=== PATIENT | male | born 1940 | race Caucasian/White ===

== ENCOUNTER 2018-12-05 09:38 | Inpatient (IN) ==
[~2018-12-05 09:38] MED LIST: PHYTONADIONE 10 MG/1 ML AMP ONE
[2018-12-05] MEDS ORDERED: PHYTONADIONE 10 MG/1 ML AMP ONE (09:53)
[2018-12-05] MEDS ORDERED: ONDANSETRON 4 MG/2 ML VIAL IV STA (09:54)
[2018-12-05] MEDS ORDERED: PHYTONADIONE 10 MG/1 ML AMP SUBCUT STA (09:54)
[2018-12-05] MEDS ORDERED: hydrALAZINE 20 MG/1 ML VIAL IV STA (09:54)
[2018-12-05] MEDS ORDERED: SODIUM CHLORIDE 0.9% 500 ML IV STA (09:54)
[2018-12-05] MEDS ORDERED: PHYTONADIONE INJ 5 MG in SODIUM CHLORIDE 0.9% 50 ML IV STA (09:54)
[2018-12-05 10:30] LABS: Basophils # 0.1 10*3/uL (0.0-0.2); Basophils % 0.7 % (0.0-0.8); Eosinophils # 0.3 10*3/uL (0.0-0.87); Eosinophils % 2.8 % (0.00-10.9); Hematocrit 43.2 VOL% (42.0-52.0); Hemoglobin 13.8 GM/DL (14.0-18.0); Immature Granulocytes % 1.2 %; Immature Granulocytes Absolute 0.14 #; Lymphocytes # 1.8 10*3/uL (1.4-4.0); Lymphocytes % 14.9 % (21.2-54.2); Mean Corpuscular HGB Conc 31.9 GM/DL (32-36); Mean Corpuscular Hemoglobin 32 PG (27-34); Mean Corpuscular Volume 98.6 FL (87-102); Mean Platelet Volume 9.4 FL (9.6-12.0); Monocytes # 0.9 10*3/uL (0.11-0.8); Monocytes % 7.6 % (1.7-12.7); Neutrophils # 8.6 10*3/uL (1.4-7.4); Neutrophils % 72.8 % (38.7-73.9); Platelet Count 233 T/CUMM (130-400); Red Blood Count 4.38 MC/CUMM (3.8-5.5); Red Cell Distribution Width 13.5 % (9.3-17.3); White Blood Count 11.8 T/CUMM (4-12)
[2018-12-05 10:42] LABS: INR 1.8; Partial Thromboplastin Time 29.9 SECS (0-40)
[2018-12-05] MEDS ORDERED: NITROGLYCERIN 2% OINT 1 INCH/GM PACK TOP STA (10:44)
[2018-12-05] MEDS ORDERED: NITROGLYCERIN 2% OINT 1 INCH/GM PACK TOP ONE (10:45)
[2018-12-05 10:46] LABS: Troponin I 0.018 NG/ML (0.00-0.045)
[2018-12-05 10:53] LABS: Bilirubin,Total 0.4 MG/DL (0.2-1.0); Calcium 8.8 MG/DL (8.5-10.1); Osmolality,Calculated 286.7 MOS/KG (273-304); Potassium 4.2 MMOL/L (3.5-5.1); Total Protein 7.7 G/DL (6.4-8.3)
[2018-12-05] MEDS ORDERED: ACETAMINOPHEN 325 MG TABLET PO PRN (11:20)
[2018-12-05] MEDS ORDERED: GLUCAGON 1 MG VIAL IM PRN (11:20)
[2018-12-05] MEDS ORDERED: ONDANSETRON 4 MG/2 ML VIAL IV PRN (11:20)
[2018-12-05] MEDS ORDERED: PROMETHAZINE 25 MG/1 ML VIAL IM PRN (11:20)
[2018-12-05] MEDS ORDERED: DEXTROSE 50% 25 GM/50 ML VIAL IV PRN (11:20)
[2018-12-05] MEDS: INSULIN LISPRO 100 UNIT/ML SUBCUT SCH ×3 (13:51→22:14)
[2018-12-05] MEDS: SODIUM CHLORIDE 0.9% 1,000 ML IV SCH (13:52)
[2018-12-05] MEDS ORDERED: NITROGLYCERIN SL 0.4 MG TABLET SL PRN (14:16)
[2018-12-05] MEDS ORDERED: hydrALAZINE 20 MG/1 ML VIAL IV PRN (14:19)
[2018-12-05] MEDS ORDERED: SODIUM CHLORIDE 0.9% 1,000 ML IV PRN (14:30)
[2018-12-05] MEDS: amLODIPine 10 MG TABLET PO SCH (15:26)
[2018-12-05] MEDS: AMITRIPTYLINE 25 MG TABLET PO SCH (15:26)
[2018-12-05] MEDS: ISOSORBIDE MONONITRATE 30 MG TABLET PO SCH (15:26)
[2018-12-05] MEDS: ATENOLOL 50 MG TABLET PO SCH ×2 (15:27→22:14)
[2018-12-05 18:18] LABS: Hematocrit 37.5 VOL% (42.0-52.0); Hemoglobin 12.1 GM/DL (14.0-18.0)
[2018-12-05] MEDS: MAGNESIUM CHLORIDE 64 MG TABLET PO SCH (19:14)
[2018-12-05] MEDS ORDERED: IRON 18 MG PO SCH (21:00)
[2018-12-05] MEDS: MULTIVITAMIN (OCUVITE) TABLET PO SCH (22:13)
[2018-12-05] MEDS: glipiZIDE 5 MG TABLET PO SCH (22:13)
[2018-12-05] MEDS: OMEGA 3 ACID ETHYL ESTERS 1 GM CAPSULE PO SCH (22:13)
[2018-12-06 00:48] LABS: Basophils # 0.1 10*3/uL (0.0-0.2); Basophils % 0.6 % (0.0-0.8); Eosinophils # 0.2 10*3/uL (0.0-0.87); Eosinophils % 1.8 % (0.00-10.9); Hematocrit 34.5 VOL% (42.0-52.0); Hemoglobin 11.1 GM/DL (14.0-18.0); Immature Granulocytes % 1.1 %; Immature Granulocytes Absolute 0.12 #; Lymphocytes # 1.9 10*3/uL (1.4-4.0); Mean Corpuscular HGB Conc 32.2 GM/DL (32-36); Mean Corpuscular Hemoglobin 32 PG (27-34); Mean Corpuscular Volume 98.6 FL (87-102); Mean Platelet Volume 9.8 FL (9.6-12.0); Monocytes # 1.3 10*3/uL (0.11-0.8); Monocytes % 11.1 % (1.7-12.7); Neutrophils # 7.8 10*3/uL (1.4-7.4); Neutrophils % 68.4 % (38.7-73.9); Platelet Count 224 T/CUMM (130-400); Red Cell Distribution Width 13.7 % (9.3-17.3); White Blood Count 11.3 T/CUMM (4-12)
[2018-12-06 00:49] LABS: Hematocrit 34.7 VOL% (42.0-52.0); Hemoglobin 11.2 GM/DL (14.0-18.0)
[2018-12-06 01:02] LABS: Calcium 8.3 MG/DL (8.5-10.1); Osmolality,Calculated 290.3 MOS/KG (273-304); Potassium 4.2 MMOL/L (3.5-5.1); Risk Ratio 4.6; VLDL CHOLESTEROL 31.6 MG/DL
[2018-12-06 01:05] LABS: Albumin 2.8 G/DL (3.4-5.0); Bilirubin,Total 1.1 MG/DL (0.2-1.0); Calcium 8.6 MG/DL (8.5-10.1); Osmolality,Calculated 287.5 MOS/KG (273-304); Potassium 4.1 MMOL/L (3.5-5.1); Total Protein 6.5 G/DL (6.4-8.3)
[2018-12-06] MEDS: SODIUM CHLORIDE 0.9% 1,000 ML IV SCH ×2 (03:01→18:42)
[2018-12-06 06:55] LABS: Hemoglobin 11.5 GM/DL (14.0-18.0)
[2018-12-06] MEDS ORDERED: NON-FORMULARY MEDICATION (Canagliflozin [Invokana] 100 MG) PO SCH (09:00)
[2018-12-06] MEDS: FUROSEMIDE 20 MG TABLET PO SCH ×2 (09:05→16:27)
[2018-12-06] MEDS: OMEGA 3 ACID ETHYL ESTERS 1 GM CAPSULE PO SCH ×2 (09:06→21:21)
[2018-12-06] MEDS: AMITRIPTYLINE 25 MG TABLET PO SCH (09:06)
[2018-12-06] MEDS: LOSARTAN 50 MG TABLET PO SCH (09:06)
[2018-12-06] MEDS: glipiZIDE 5 MG TABLET PO SCH ×2 (09:07→21:21)
[2018-12-06] MEDS: ATENOLOL 50 MG TABLET PO SCH ×2 (09:08→21:21)
[2018-12-06] MEDS: amLODIPine 10 MG TABLET PO SCH (09:09)
[2018-12-06] MEDS: MULTIVITAMIN (OCUVITE) TABLET PO SCH ×2 (09:09→21:21)
[2018-12-06] MEDS: EZETIMIBE 10 MG TABLET PO SCH (09:09)
[2018-12-06] MEDS: ISOSORBIDE MONONITRATE 30 MG TABLET PO SCH (09:10)
[2018-12-06] MEDS: PANTOPRAZOLE 40 MG TABLET PO SCH (09:10)
[2018-12-06] MEDS: CYANOCOBALAMIN 500 MCG TABLET PO SCH (09:10)
[2018-12-06] MEDS: INSULIN LISPRO 100 UNIT/ML SUBCUT SCH ×4 (09:11→21:22)
[2018-12-06 09:35] LABS: INR 1.3; PT Patient Result 13.9 SECS
[2018-12-06 11:49] LABS: Hematocrit 33.4 VOL% (42.0-52.0); Hemoglobin 10.6 GM/DL (14.0-18.0)
[2018-12-06] MEDS ORDERED: OXYMETAZOLINE 0.05% NASAL SPRAY 15 ML BOTTLE BOTH NARES ONE (12:21)
[2018-12-06] MEDS: DIGOXIN 0.125 MG TABLET PO SCH (12:53)
[2018-12-06] MEDS ORDERED: WARFARIN 2 MG TABLET PO SCH (18:00)
[2018-12-06 18:38] LABS: Hematocrit 34.8 VOL% (42.0-52.0); Hemoglobin 10.8 GM/DL (14.0-18.0)
[2018-12-06] MEDS: ASCORBIC ACID 500 MG TABLET PO SCH (21:21)
[2018-12-06] MEDS ORDERED: FUROSEMIDE 40 MG/4 ML VIAL IV ONE (22:51)
[2018-12-06] MEDS ORDERED: MORPHINE 4 MG/1 ML VIAL IV SCH (23:00)
[2018-12-06] MEDS ORDERED: MORPHINE 4 MG/1 ML VIAL IV PRN (23:02)
[2018-12-07 03:42] LABS: Basophils # 0.1 10*3/uL (0.0-0.2); Basophils % 0.5 % (0.0-0.8); Eosinophils # 0.1 10*3/uL (0.0-0.87); Eosinophils % 1.1 % (0.00-10.9); Hematocrit 31.5 VOL% (42.0-52.0); Hemoglobin 9.9 GM/DL (14.0-18.0); Immature Granulocytes % 0.5 %; Immature Granulocytes Absolute 0.05 #; Lymphocytes # 1.8 10*3/uL (1.4-4.0); Lymphocytes % 16.6 % (21.2-54.2); Mean Corpuscular HGB Conc 31.4 GM/DL (32-36); Mean Corpuscular Hemoglobin 32 PG (27-34); Mean Platelet Volume 9.7 FL (9.6-12.0); Monocytes # 1.1 10*3/uL (0.11-0.8); Monocytes % 10.2 % (1.7-12.7); Neutrophils # 7.9 10*3/uL (1.4-7.4); Neutrophils % 71.1 % (38.7-73.9); Platelet Count 173 T/CUMM (130-400); Red Blood Count 3.12 MC/CUMM (3.8-5.5); Red Cell Distribution Width 14.2 % (9.3-17.3)
[2018-12-07 04:12] LABS: Calcium 8.5 MG/DL (8.5-10.1); Osmolality,Calculated 288.4 MOS/KG (273-304)
[2018-12-07] MEDS: INSULIN LISPRO 100 UNIT/ML SUBCUT SCH ×4 (09:46→21:13)
[2018-12-07] MEDS: FUROSEMIDE 20 MG TABLET PO SCH ×2 (09:51→17:37)
[2018-12-07] MEDS: AMITRIPTYLINE 25 MG TABLET PO SCH (09:51)
[2018-12-07] MEDS: LOSARTAN 50 MG TABLET PO SCH (09:52)
[2018-12-07] MEDS: ATENOLOL 50 MG TABLET PO SCH ×2 (09:52→21:45)
[2018-12-07] MEDS: glipiZIDE 5 MG TABLET PO SCH ×2 (09:52→21:14)
[2018-12-07] MEDS: amLODIPine 10 MG TABLET PO SCH (09:52)
[2018-12-07] MEDS: ISOSORBIDE MONONITRATE 30 MG TABLET PO SCH (09:52)
[2018-12-07] MEDS: EZETIMIBE 10 MG TABLET PO SCH (09:52)
[2018-12-07] MEDS: MAGNESIUM CHLORIDE 64 MG TABLET PO SCH (09:52)
[2018-12-07] MEDS: OMEGA 3 ACID ETHYL ESTERS 1 GM CAPSULE PO SCH ×2 (09:53→21:44)
[2018-12-07] MEDS: PANTOPRAZOLE 40 MG TABLET PO SCH (09:53)
[2018-12-07] MEDS: ASCORBIC ACID 500 MG TABLET PO SCH ×2 (09:54→21:45)
[2018-12-07] MEDS: CYANOCOBALAMIN 500 MCG TABLET PO SCH (09:54)
[2018-12-07] MEDS: MULTIVITAMIN (OCUVITE) TABLET PO SCH ×2 (10:34→21:45)
[2018-12-07] MEDS: DIGOXIN 0.125 MG TABLET PO SCH (13:09)
[2018-12-07] MEDS ORDERED: WARFARIN 3 MG TABLET PO SCH (18:00)
[2018-12-07] MEDS ORDERED: WARFARIN 1 MG TABLET PO SCH (19:00)
[2018-12-08 04:52] LABS: Basophils # 0.1 10*3/uL (0.0-0.2); Basophils % 0.8 % (0.0-0.8); Eosinophils # 0.4 10*3/uL (0.0-0.87); Eosinophils % 4.3 % (0.00-10.9); Hematocrit 31.9 VOL% (42.0-52.0); Hemoglobin 9.9 GM/DL (14.0-18.0); Immature Granulocytes % 0.5 %; Immature Granulocytes Absolute 0.05 #; Lymphocytes # 1.3 10*3/uL (1.4-4.0); Lymphocytes % 13.6 % (21.2-54.2); Mean Corpuscular Hemoglobin 32 PG (27-34); Mean Corpuscular Volume 101.6 FL (87-102); Mean Platelet Volume 9.4 FL (9.6-12.0); Monocytes # 0.8 10*3/uL (0.11-0.8); Monocytes % 8.8 % (1.7-12.7); Neutrophils # 6.7 10*3/uL (1.4-7.4); Platelet Count 170 T/CUMM (130-400); Red Blood Count 3.14 MC/CUMM (3.8-5.5); Red Cell Distribution Width 14.5 % (9.3-17.3); White Blood Count 9.3 T/CUMM (4-12)
[2018-12-08 04:57] LABS: INR 1.2; PT Patient Result 12.8 SECS
[2018-12-08 05:09] LABS: Osmolality,Calculated 288.5 MOS/KG (273-304)
[2018-12-08 08:21] VITALS: BP 163/65
[2018-12-08] MEDS: PANTOPRAZOLE 40 MG TABLET PO SCH (08:34)
[2018-12-08] MEDS: amLODIPine 10 MG TABLET PO SCH (08:34)
[2018-12-08] MEDS: LOSARTAN 50 MG TABLET PO SCH (08:34)
[2018-12-08] MEDS: MULTIVITAMIN (OCUVITE) TABLET PO SCH (08:34)
[2018-12-08] MEDS: FUROSEMIDE 20 MG TABLET PO SCH (08:35)
[2018-12-08] MEDS: EZETIMIBE 10 MG TABLET PO SCH (08:35)
[2018-12-08] MEDS: ASCORBIC ACID 500 MG TABLET PO SCH (08:35)
[2018-12-08] MEDS: ISOSORBIDE MONONITRATE 30 MG TABLET PO SCH (08:35)
[2018-12-08] MEDS: CYANOCOBALAMIN 500 MCG TABLET PO SCH (08:35)
[2018-12-08] MEDS: OMEGA 3 ACID ETHYL ESTERS 1 GM CAPSULE PO SCH (08:35)
[2018-12-08] MEDS: glipiZIDE 5 MG TABLET PO SCH (08:35)
[2018-12-08] MEDS: INSULIN LISPRO 100 UNIT/ML SUBCUT SCH (08:35)
[2018-12-08] MEDS: AMITRIPTYLINE 25 MG TABLET PO SCH (08:35)
[2018-12-08] MEDS: ATENOLOL 50 MG TABLET PO SCH (08:35)
[2018-12-09] MEDS ORDERED: WARFARIN 3 MG TABLET PO SCH (18:00)
== END 2018-12-08 10:55 | disposition home or self-care (01) | DRG 813 ==
LOC: N.ED 09:38 → N.EDINP 09:38 → SUATTDRO 11:20 → N.TELEN 12:43
PROVIDERS: ADMIT Family Medicine; ATTEND Family Medicine

== ENCOUNTER 2018-12-15 08:51 | Inpatient (IN) ==
[2018-12-15] MEDS ORDERED: ONDANSETRON 4 MG/2 ML VIAL IV STA (09:36)
[2018-12-15] MEDS ORDERED: methylPREDNISolone SOD SUC 125 MG/2 ML VIAL IV STA (09:36)
[2018-12-15] MEDS ORDERED: MORPHINE 4 MG/1 ML VIAL IV STA (09:36)
[2018-12-15] MEDS ORDERED: cefTRIAXone 1,000 MG in SODIUM CHLORIDE 0.9% 100 ML IV STA (09:36)
[2018-12-15] MEDS ORDERED: FUROSEMIDE 100 MG/10 ML VIAL IV STA (09:36)
[2018-12-15] MEDS ORDERED: ALBUTEROL 2.5 MG/3 ML NEB RESP TX SCH (10:00)
[2018-12-15 10:02] LABS: Basophils % 0.3 % (0.0-0.8); Eosinophils # 0.1 10*3/uL (0.0-0.87); Eosinophils % 0.5 % (0.00-10.9); Hematocrit 36.7 VOL% (42.0-52.0); Hemoglobin 11.7 GM/DL (14.0-18.0); Immature Granulocytes % 1.1 %; Immature Granulocytes Absolute 0.13 #; Lymphocytes # 1.6 10*3/uL (1.4-4.0); Lymphocytes % 13.8 % (21.2-54.2); Mean Corpuscular HGB Conc 31.9 GM/DL (32-36); Mean Corpuscular Hemoglobin 31 PG (27-34); Mean Corpuscular Volume 97.3 FL (87-102); Monocytes # 0.9 10*3/uL (0.11-0.8); Monocytes % 7.4 % (1.7-12.7); Neutrophils # 8.8 10*3/uL (1.4-7.4); Neutrophils % 76.9 % (38.7-73.9); Platelet Count 346 T/CUMM (130-400); Red Blood Count 3.77 MC/CUMM (3.8-5.5); Red Cell Distribution Width 13.6 % (9.3-17.3); White Blood Count 11.4 T/CUMM (4-12)
[2018-12-15 10:07] LABS: INR 2.7
[2018-12-15 10:11] LABS: PT Patient Result 29.3 SECS
[2018-12-15 10:14] LABS: Alanine Aminotransferase 17 U/L (16-61); Albumin 3.2 G/DL (3.4-5.0); Alkaline Phosphatase 100 U/L (45-117); Aspartate Amino Transferase 17 U/L (0-37); Bilirubin,Total < 0.39 MG/DL (0.2-1.0); Blood Urea Nitrogen 38 MG/DL (7-18); Calcium 8.5 MG/DL (8.5-10.1); Glucose 87 MG/DL (74-106); Osmolality,Calculated 277.1 MOS/KG (273-304); Potassium 3.9 MMOL/L (3.5-5.1); Sodium 135 MMOL/L (136-145); Total Protein 7.6 G/DL (6.4-8.3)
[2018-12-15 10:50] LABS: Apearance,Urine CLEAR (Clear); Bacteria,Urine Occasional /HPF (Few); Bilirubin,Urine Negative (Negative); Blood, Urine Negative (Negative); Glucose,Urine (UA) 50 mg/dL (Negative); Ketones,Urine Negative (Negative); Nitrite,Urine Negative (Negative); Protein,Urine 100 MG/DL; RBC,Urine <1 /HPF (0-4); Urine Color Straw (Yellow); Urine Specific Gravity 1.006 (1.001-1.035); Urine Urobilinogen < 2.0 EU/DL (0.2-1.0); WBC,Urine <1 /HPF (0-6)
[2018-12-15] MEDS ORDERED: DEXTROSE 50% 25 GM/50 ML SYRINGE IV PRN (12:08)
[2018-12-15] MEDS ORDERED: MORPHINE 4 MG/1 ML VIAL IV PRN (12:08)
[2018-12-15] MEDS ORDERED: ONDANSETRON 4 MG/2 ML VIAL IV PRN (12:08)
[2018-12-15] MEDS ORDERED: ACETAMINOPHEN 325 MG TABLET PO PRN (12:08)
[2018-12-15] MEDS ORDERED: GLUCAGON 1 MG VIAL IM PRN (12:08)
[2018-12-15] MEDS: INSULIN REGULAR 100 UNIT/ML SUBCUT SCH ×2 (12:22→18:10)
[2018-12-15] MEDS: SODIUM CHLORIDE 0.9% 1,000 ML IV SCH (12:23)
[2018-12-15] MEDS: methylPREDNISolone SOD SUC 40 MG/1 ML VIAL IV SCH ×2 (12:25→21:15)
[2018-12-15] MEDS ORDERED: NITROGLYCERIN SL 0.4 MG TABLET SL PRN (12:54)
[2018-12-15] MEDS: DIGOXIN 0.125 MG TABLET PO SCH (13:57)
[2018-12-15] MEDS: cefTRIAXone 1,000 MG in SYRINGE 1 EACH IV SCH (13:58)
[2018-12-15] MEDS: amLODIPine 10 MG TABLET PO SCH (13:58)
[2018-12-15] MEDS ORDERED: ALUM/MAG/SIMETH/LIDO VISC 1:1 30 ML BOTTLE PO ONE (15:21)
[2018-12-15] MEDS ORDERED: ALUMINUM/MAGNES/SIMETH MAX STR 30 ML UDCUP PO PRN (15:34)
[2018-12-15] MEDS ORDERED: FUROSEMIDE 40 MG/4 ML VIAL IV SCH (16:00)
[2018-12-15] MEDS: ALBUTEROL/IPRATROPIUM 3 ML NEB RESP TX SCH ×4 (16:07→23:58)
[2018-12-15] MEDS: glipiZIDE 5 MG TABLET PO SCH (16:45)
[2018-12-15] MEDS ORDERED: WARFARIN 2 MG TABLET PO SCH (18:00)
[2018-12-15 18:04] LABS: Troponin I 0.295 NG/ML (0.00-0.045)
[2018-12-15] MEDS: ATENOLOL 50 MG TABLET PO SCH (21:12)
[2018-12-15] MEDS: DOCUSATE SODIUM 100 MG CAPSULE PO SCH (21:12)
[2018-12-15] MEDS: FERROUS SULFATE 325 MG TABLET PO SCH (21:13)
[2018-12-15] MEDS: ISOSORBIDE MONONITRATE 30 MG TABLET PO SCH (21:13)
[2018-12-15] MEDS: INSULIN GLARGINE 100 UNIT/ML SUBCUT SCH (21:13)
[2018-12-16] MEDS: INSULIN REGULAR 100 UNIT/ML SUBCUT SCH ×4 (00:16→19:11)
[2018-12-16] MEDS: ALBUTEROL/IPRATROPIUM 3 ML NEB RESP TX SCH ×6 (03:30→23:28)
[2018-12-16] MEDS: methylPREDNISolone SOD SUC 40 MG/1 ML VIAL IV SCH ×3 (04:00→21:17)
[2018-12-16 04:42] LABS: Basophils % 0.1 % (0.0-0.8); Hematocrit 35.1 VOL% (42.0-52.0); Hemoglobin 10.8 GM/DL (14.0-18.0); Immature Granulocytes % 0.9 %; Immature Granulocytes Absolute 0.08 #; Lymphocytes % 11.8 % (21.2-54.2); Mean Corpuscular HGB Conc 30.8 GM/DL (32-36); Mean Corpuscular Hemoglobin 31 PG (27-34); Mean Corpuscular Volume 99.2 FL (87-102); Mean Platelet Volume 9.9 FL (9.6-12.0); Monocytes # 0.3 10*3/uL (0.11-0.8); Monocytes % 3.9 % (1.7-12.7); Neutrophils # 7.3 10*3/uL (1.4-7.4); Neutrophils % 83.3 % (38.7-73.9); Platelet Count 311 T/CUMM (130-400); Red Blood Count 3.54 MC/CUMM (3.8-5.5); Red Cell Distribution Width 13.9 % (9.3-17.3); White Blood Count 8.8 T/CUMM (4-12)
[2018-12-16 05:14] LABS: Alanine Aminotransferase 15 U/L (16-61); Alkaline Phosphatase 90 U/L (45-117); Aspartate Amino Transferase 11 U/L (0-37); Bilirubin,Total < 0.39 MG/DL (0.2-1.0); Blood Urea Nitrogen 51 MG/DL (7-18); Calcium 8.6 MG/DL (8.5-10.1); Cholesterol 186 MG/DL (50-200); Glucose 193 MG/DL (74-106); HDL Cholesterol 44 MG/DL (40-60); Osmolality,Calculated 278.8 MOS/KG (273-304); Potassium 4.5 MMOL/L (3.5-5.1); Risk Ratio 4.23; Sodium 130 MMOL/L (136-145); Total Protein 7.7 G/DL (6.4-8.3); Triglycerides 89 MG/DL (2-150); VLDL CHOLESTEROL 17.8 MG/DL
[2018-12-16] MEDS: glipiZIDE 5 MG TABLET PO SCH ×2 (08:10→17:14)
[2018-12-16] MEDS: metFORMIN 500 MG TABLET PO SCH (08:10)
[2018-12-16] MEDS ORDERED: LOSARTAN 50 MG TABLET PO SCH (09:00)
[2018-12-16] MEDS: AZITHROMYCIN 250 MG TABLET PO SCH (09:35)
[2018-12-16] MEDS: EZETIMIBE 10 MG TABLET PO SCH (09:35)
[2018-12-16] MEDS: ATENOLOL 50 MG TABLET PO SCH ×2 (09:35→21:17)
[2018-12-16] MEDS: PANTOPRAZOLE 40 MG TABLET PO SCH (09:35)
[2018-12-16] MEDS: NON-FORMULARY MEDICATION (Canagliflozin [Invokana] 100 MG) PO SCH (09:35)
[2018-12-16] MEDS: FUROSEMIDE 40 MG TABLET PO SCH (09:35)
[2018-12-16] MEDS: DOCUSATE SODIUM 100 MG CAPSULE PO SCH ×2 (09:36→21:17)
[2018-12-16] MEDS: AMITRIPTYLINE 25 MG TABLET PO SCH (09:36)
[2018-12-16] MEDS: amLODIPine 10 MG TABLET PO SCH (09:36)
[2018-12-16] MEDS: ASPIRIN CHEW 81 MG TABLET PO SCH (09:36)
[2018-12-16] MEDS: INSULIN GLARGINE 100 UNIT/ML SUBCUT SCH ×2 (09:46→21:18)
[2018-12-16] MEDS: FERROUS SULFATE 325 MG TABLET PO SCH ×2 (09:46→21:17)
[2018-12-16] MEDS: SODIUM CHLORIDE 0.9% 1,000 ML IV SCH ×2 (12:42→14:19)
[2018-12-16] MEDS: MAGNESIUM CHLORIDE 64 MG TABLET PO SCH (12:46)
[2018-12-16] MEDS: DIGOXIN 0.125 MG TABLET PO SCH (13:55)
[2018-12-16] MEDS: cefTRIAXone 1,000 MG in SYRINGE 1 EACH IV SCH (13:56)
[2018-12-16] MEDS: WARFARIN 3 MG TABLET PO SCH (17:15)
[2018-12-16] MEDS: ISOSORBIDE MONONITRATE 30 MG TABLET PO SCH (21:17)
[2018-12-17] MEDS: INSULIN REGULAR 100 UNIT/ML SUBCUT SCH ×5 (00:02→17:23)
[2018-12-17] MEDS: ALBUTEROL/IPRATROPIUM 3 ML NEB RESP TX SCH ×5 (03:01→19:21)
[2018-12-17] MEDS: methylPREDNISolone SOD SUC 40 MG/1 ML VIAL IV SCH ×3 (05:00→20:17)
[2018-12-17] MEDS: INSULIN GLARGINE 100 UNIT/ML SUBCUT SCH ×2 (09:25→20:17)
[2018-12-17] MEDS: NON-FORMULARY MEDICATION (Canagliflozin [Invokana] 100 MG) PO SCH (09:25)
[2018-12-17] MEDS: metFORMIN 500 MG TABLET PO SCH (09:26)
[2018-12-17] MEDS: ASPIRIN CHEW 81 MG TABLET PO SCH (09:26)
[2018-12-17] MEDS: glipiZIDE 5 MG TABLET PO SCH ×2 (09:27→16:52)
[2018-12-17] MEDS: ATENOLOL 50 MG TABLET PO SCH ×2 (09:27→20:17)
[2018-12-17] MEDS: AMITRIPTYLINE 25 MG TABLET PO SCH (09:27)
[2018-12-17] MEDS: AZITHROMYCIN 250 MG TABLET PO SCH (09:27)
[2018-12-17] MEDS: EZETIMIBE 10 MG TABLET PO SCH (09:27)
[2018-12-17] MEDS: amLODIPine 10 MG TABLET PO SCH (09:27)
[2018-12-17] MEDS: FERROUS SULFATE 325 MG TABLET PO SCH ×2 (09:27→20:17)
[2018-12-17] MEDS: DOCUSATE SODIUM 100 MG CAPSULE PO SCH ×2 (09:27→20:17)
[2018-12-17] MEDS: PANTOPRAZOLE 40 MG TABLET PO SCH (09:27)
[2018-12-17] MEDS: FUROSEMIDE 40 MG TABLET PO SCH (09:27)
[2018-12-17] MEDS: MAGNESIUM HYDROXIDE SUSP 30 ML UDCUP PO PRN (10:01)
[2018-12-17] MEDS: SODIUM CHLORIDE 0.9% 1,000 ML IV SCH (13:02)
[2018-12-17] MEDS: DIGOXIN 0.125 MG TABLET PO SCH (13:37)
[2018-12-17] MEDS: cefTRIAXone 1,000 MG in SYRINGE 1 EACH IV SCH (13:38)
[2018-12-17] MEDS: ISOSORBIDE MONONITRATE 30 MG TABLET PO SCH (20:17)
[2018-12-18] MEDS: ALBUTEROL/IPRATROPIUM 3 ML NEB RESP TX SCH ×7 (00:41→22:35)
[2018-12-18] MEDS: INSULIN REGULAR 100 UNIT/ML SUBCUT SCH ×5 (00:47→17:23)
[2018-12-18] MEDS: methylPREDNISolone SOD SUC 40 MG/1 ML VIAL IV SCH ×3 (04:12→22:17)
[2018-12-18 05:08] LABS: INR 1.7; PT Patient Result 18.5 SECS
[2018-12-18 05:23] LABS: Bilirubin,Total 0.6 MG/DL (0.2-1.0); Calcium 8.7 MG/DL (8.5-10.1); Osmolality,Calculated 292.7 MOS/KG (273-304); Potassium 5.1 MMOL/L (3.5-5.1)
[2018-12-18] MEDS: INSULIN GLARGINE 100 UNIT/ML SUBCUT SCH ×2 (09:39→22:17)
[2018-12-18] MEDS: metFORMIN 500 MG TABLET PO SCH (09:39)
[2018-12-18] MEDS: ATENOLOL 50 MG TABLET PO SCH ×2 (09:40→22:17)
[2018-12-18] MEDS: AMITRIPTYLINE 25 MG TABLET PO SCH (09:40)
[2018-12-18] MEDS: ASPIRIN CHEW 81 MG TABLET PO SCH (09:40)
[2018-12-18] MEDS: NON-FORMULARY MEDICATION (Canagliflozin [Invokana] 100 MG) PO SCH (09:40)
[2018-12-18] MEDS: DOCUSATE SODIUM 100 MG CAPSULE PO SCH ×2 (09:40→22:16)
[2018-12-18] MEDS: EZETIMIBE 10 MG TABLET PO SCH (09:40)
[2018-12-18] MEDS: FERROUS SULFATE 325 MG TABLET PO SCH ×2 (09:40→22:16)
[2018-12-18] MEDS: AZITHROMYCIN 250 MG TABLET PO SCH (09:40)
[2018-12-18] MEDS: amLODIPine 10 MG TABLET PO SCH (09:40)
[2018-12-18] MEDS: glipiZIDE 5 MG TABLET PO SCH ×2 (09:40→16:57)
[2018-12-18] MEDS: PANTOPRAZOLE 40 MG TABLET PO SCH (09:41)
[2018-12-18] MEDS: FUROSEMIDE 40 MG TABLET PO SCH (09:41)
[2018-12-18] MEDS: SODIUM CHLORIDE 0.9% 1,000 ML IV SCH (12:04)
[2018-12-18] MEDS: MAGNESIUM CHLORIDE 64 MG TABLET PO SCH (12:28)
[2018-12-18] MEDS: DIGOXIN 0.125 MG TABLET PO SCH (12:28)
[2018-12-18] MEDS: cefTRIAXone 1,000 MG in SYRINGE 1 EACH IV SCH (12:29)
[2018-12-18] MEDS: ISOSORBIDE MONONITRATE 30 MG TABLET PO SCH (22:17)
[2018-12-19] MEDS: INSULIN REGULAR 100 UNIT/ML SUBCUT SCH ×4 (01:03→17:12)
[2018-12-19] MEDS: ALBUTEROL/IPRATROPIUM 3 ML NEB RESP TX SCH ×6 (03:02→23:52)
[2018-12-19 05:06] LABS: INR 1.5
[2018-12-19 05:15] LABS: Calcium 8.8 MG/DL (8.5-10.1); Osmolality,Calculated 295.5 MOS/KG (273-304); Potassium 5.1 MMOL/L (3.5-5.1)
[2018-12-19] MEDS: methylPREDNISolone SOD SUC 40 MG/1 ML VIAL IV SCH ×3 (05:15→22:16)
[2018-12-19] MEDS: INSULIN GLARGINE 100 UNIT/ML SUBCUT SCH ×2 (09:35→22:16)
[2018-12-19] MEDS: EZETIMIBE 10 MG TABLET PO SCH (09:35)
[2018-12-19] MEDS: metFORMIN 500 MG TABLET PO SCH (09:35)
[2018-12-19] MEDS: DOCUSATE SODIUM 100 MG CAPSULE PO SCH ×2 (09:36→22:15)
[2018-12-19] MEDS: amLODIPine 10 MG TABLET PO SCH (09:36)
[2018-12-19] MEDS: FERROUS SULFATE 325 MG TABLET PO SCH ×2 (09:36→22:15)
[2018-12-19] MEDS: AMITRIPTYLINE 25 MG TABLET PO SCH (09:36)
[2018-12-19] MEDS: AZITHROMYCIN 250 MG TABLET PO SCH (09:36)
[2018-12-19] MEDS: ATENOLOL 50 MG TABLET PO SCH ×2 (09:36→22:15)
[2018-12-19] MEDS: PANTOPRAZOLE 40 MG TABLET PO SCH (09:36)
[2018-12-19] MEDS: NON-FORMULARY MEDICATION (Canagliflozin [Invokana] 100 MG) PO SCH (09:36)
[2018-12-19] MEDS: ASPIRIN CHEW 81 MG TABLET PO SCH (09:36)
[2018-12-19] MEDS: glipiZIDE 5 MG TABLET PO SCH ×2 (09:36→16:46)
[2018-12-19] MEDS: FUROSEMIDE 40 MG TABLET PO SCH (09:37)
[2018-12-19] MEDS: MAGNESIUM CHLORIDE 64 MG TABLET PO SCH (13:32)
[2018-12-19] MEDS: DIGOXIN 0.125 MG TABLET PO SCH (13:32)
[2018-12-19] MEDS: SODIUM CHLORIDE 0.9% 1,000 ML IV SCH (13:33)
[2018-12-19] MEDS: cefTRIAXone 1,000 MG in SYRINGE 1 EACH IV SCH (13:33)
[2018-12-19] MEDS: MAGNESIUM HYDROXIDE SUSP 30 ML UDCUP PO PRN (22:16)
[2018-12-19] MEDS: ISOSORBIDE MONONITRATE 30 MG TABLET PO SCH (22:16)
[2018-12-20] MEDS: INSULIN REGULAR 100 UNIT/ML SUBCUT SCH ×4 (02:35→18:46)
[2018-12-20] MEDS: ALBUTEROL/IPRATROPIUM 3 ML NEB RESP TX SCH ×6 (03:49→23:20)
[2018-12-20] MEDS: methylPREDNISolone SOD SUC 40 MG/1 ML VIAL IV SCH ×3 (04:24→22:35)
[2018-12-20 04:46] LABS: Basophils % 0.1 % (0.0-0.8); Hematocrit 34.6 VOL% (42.0-52.0); Hemoglobin 10.7 GM/DL (14.0-18.0); Immature Granulocytes % 1.8 %; Immature Granulocytes Absolute 0.19 #; Lymphocytes # 0.7 10*3/uL (1.4-4.0); Lymphocytes % 6.5 % (21.2-54.2); Mean Corpuscular HGB Conc 30.9 GM/DL (32-36); Mean Corpuscular Hemoglobin 31 PG (27-34); Mean Corpuscular Volume 99.7 FL (87-102); Mean Platelet Volume 9.4 FL (9.6-12.0); Monocytes # 0.5 10*3/uL (0.11-0.8); Monocytes % 4.3 % (1.7-12.7); Neutrophils # 9.2 10*3/uL (1.4-7.4); Neutrophils % 87.3 % (38.7-73.9); Platelet Count 287 T/CUMM (130-400); Red Blood Count 3.47 MC/CUMM (3.8-5.5); Red Cell Distribution Width 14.6 % (9.3-17.3); White Blood Count 10.6 T/CUMM (4-12)
[2018-12-20 04:54] LABS: INR 1.4; PT Patient Result 14.7 SECS
[2018-12-20 04:55] LABS: INR 1.4; PT Patient Result 15.1 SECS
[2018-12-20 05:06] LABS: Calcium 8.9 MG/DL (8.5-10.1); Osmolality,Calculated 294.2 MOS/KG (273-304); Potassium 4.9 MMOL/L (3.5-5.1)
[2018-12-20] MEDS: glipiZIDE 5 MG TABLET PO SCH ×2 (09:08→16:09)
[2018-12-20] MEDS: metFORMIN 500 MG TABLET PO SCH (09:09)
[2018-12-20] MEDS: NON-FORMULARY MEDICATION (Canagliflozin [Invokana] 100 MG) PO SCH (09:09)
[2018-12-20] MEDS: ASPIRIN CHEW 81 MG TABLET PO SCH (09:09)
[2018-12-20] MEDS: INSULIN GLARGINE 100 UNIT/ML SUBCUT SCH ×2 (09:10→22:35)
[2018-12-20] MEDS: DOCUSATE SODIUM 100 MG CAPSULE PO SCH ×2 (09:10→22:34)
[2018-12-20] MEDS: FERROUS SULFATE 325 MG TABLET PO SCH ×2 (09:10→22:34)
[2018-12-20] MEDS: AMITRIPTYLINE 25 MG TABLET PO SCH (09:10)
[2018-12-20] MEDS: AZITHROMYCIN 250 MG TABLET PO SCH (09:14)
[2018-12-20] MEDS: PANTOPRAZOLE 40 MG TABLET PO SCH (09:15)
[2018-12-20] MEDS: amLODIPine 10 MG TABLET PO SCH (09:15)
[2018-12-20] MEDS: FUROSEMIDE 40 MG TABLET PO SCH (09:15)
[2018-12-20] MEDS: ATENOLOL 50 MG TABLET PO SCH ×2 (09:15→22:34)
[2018-12-20] MEDS: EZETIMIBE 10 MG TABLET PO SCH (09:15)
[2018-12-20] MEDS: MAGNESIUM HYDROXIDE SUSP 30 ML UDCUP PO PRN (09:25)
[2018-12-20] MEDS ORDERED: POTASSIUM CHLORIDE RIDER 10 MEQ in PREMIX 1 EACH IV PRN (10:34)
[2018-12-20] MEDS ORDERED: DIAZEPAM 5 MG TABLET PO ONE (10:34)
[2018-12-20] MEDS ORDERED: MAGNESIUM SULF RIDER 2 GM in PREMIX 1 EACH IV PRN (10:34)
[2018-12-20] MEDS ORDERED: diphenhydrAMINE CAP 25 MG CAPSULE PO ONE (10:34)
[2018-12-20] MEDS: ENOXAPARIN 30 MG/0.3 ML SYRINGE SUBCUT SCH (11:40)
[2018-12-20] MEDS: DIGOXIN 0.125 MG TABLET PO SCH (13:47)
[2018-12-20] MEDS: cefTRIAXone 1,000 MG in SYRINGE 1 EACH IV SCH (13:49)
[2018-12-20] MEDS: SODIUM CHLORIDE 0.9% 1,000 ML IV SCH (18:47)
[2018-12-20] MEDS: ISOSORBIDE MONONITRATE 30 MG TABLET PO SCH (22:34)
[2018-12-21] MEDS: INSULIN REGULAR 100 UNIT/ML SUBCUT SCH ×4 (01:23→19:27)
[2018-12-21] MEDS: ALBUTEROL/IPRATROPIUM 3 ML NEB RESP TX SCH ×6 (03:10→23:38)
[2018-12-21 04:55] LABS: Basophils % 0.1 % (0.0-0.8); Hematocrit 37.3 VOL% (42.0-52.0); Hemoglobin 11.6 GM/DL (14.0-18.0); Immature Granulocytes % 1.4 %; Immature Granulocytes Absolute 0.17 #; Lymphocytes # 0.7 10*3/uL (1.4-4.0); Lymphocytes % 5.5 % (21.2-54.2); Mean Corpuscular HGB Conc 31.1 GM/DL (32-36); Mean Corpuscular Hemoglobin 31 PG (27-34); Mean Corpuscular Volume 100.3 FL (87-102); Mean Platelet Volume 9.3 FL (9.6-12.0); Monocytes # 0.6 10*3/uL (0.11-0.8); Monocytes % 4.6 % (1.7-12.7); Neutrophils # 10.7 10*3/uL (1.4-7.4); Neutrophils % 88.4 % (38.7-73.9); Platelet Count 294 T/CUMM (130-400); Red Blood Count 3.72 MC/CUMM (3.8-5.5); Red Cell Distribution Width 14.7 % (9.3-17.3); White Blood Count 12.1 T/CUMM (4-12)
[2018-12-21] MEDS: methylPREDNISolone SOD SUC 40 MG/1 ML VIAL IV SCH ×3 (05:00→22:35)
[2018-12-21 05:09] LABS: Osmolality,Calculated 290.2 MOS/KG (273-304); Potassium 5.7 MMOL/L (3.5-5.1)
[2018-12-21] MEDS ORDERED: SODIUM POLYSTYRENE SULFATE 15 GM/60 ML BOTTLE PO ONE (07:30)
[2018-12-21] MEDS: INSULIN GLARGINE 100 UNIT/ML SUBCUT SCH ×2 (09:37→22:35)
[2018-12-21] MEDS: ASPIRIN CHEW 81 MG TABLET PO SCH (09:38)
[2018-12-21] MEDS: amLODIPine 10 MG TABLET PO SCH (09:38)
[2018-12-21] MEDS: AMITRIPTYLINE 25 MG TABLET PO SCH (09:38)
[2018-12-21] MEDS: DOCUSATE SODIUM 100 MG CAPSULE PO SCH ×2 (09:39→22:34)
[2018-12-21] MEDS: metFORMIN 500 MG TABLET PO SCH (09:39)
[2018-12-21] MEDS: EZETIMIBE 10 MG TABLET PO SCH (09:39)
[2018-12-21] MEDS: ATENOLOL 50 MG TABLET PO SCH ×2 (09:39→22:33)
[2018-12-21] MEDS: glipiZIDE 5 MG TABLET PO SCH ×2 (09:39→17:02)
[2018-12-21] MEDS: FERROUS SULFATE 325 MG TABLET PO SCH ×2 (09:39→22:34)
[2018-12-21] MEDS: PANTOPRAZOLE 40 MG TABLET PO SCH (09:39)
[2018-12-21] MEDS: NON-FORMULARY MEDICATION (Canagliflozin [Invokana] 100 MG) PO SCH (09:41)
[2018-12-21] MEDS: FUROSEMIDE 40 MG TABLET PO SCH (09:41)
[2018-12-21] MEDS: AZITHROMYCIN 250 MG TABLET PO SCH (09:46)
[2018-12-21] MEDS: ENOXAPARIN 30 MG/0.3 ML SYRINGE SUBCUT SCH (12:36)
[2018-12-21] MEDS: DIGOXIN 0.125 MG TABLET PO SCH (13:40)
[2018-12-21] MEDS: cefTRIAXone 1,000 MG in SYRINGE 1 EACH IV SCH (13:43)
[2018-12-21] MEDS: SODIUM CHLORIDE 0.9% 1,000 ML IV SCH (14:40)
[2018-12-21] MEDS: WARFARIN 3 MG TABLET PO SCH (17:03)
[2018-12-21] MEDS: ISOSORBIDE MONONITRATE 30 MG TABLET PO SCH (22:34)
[2018-12-22] MEDS: INSULIN REGULAR 100 UNIT/ML SUBCUT SCH ×4 (00:14→17:47)
[2018-12-22] MEDS: ALBUTEROL/IPRATROPIUM 3 ML NEB RESP TX SCH ×6 (03:07→23:32)
[2018-12-22 06:35] LABS: Basophils % 0.1 % (0.0-0.8); Eosinophils % 0.1 % (0.00-10.9); Hematocrit 36.3 VOL% (42.0-52.0); Hemoglobin 11.2 GM/DL (14.0-18.0); Immature Granulocytes % 1.6 %; Lymphocytes # 0.8 10*3/uL (1.4-4.0); Lymphocytes % 6.2 % (21.2-54.2); Mean Corpuscular HGB Conc 30.9 GM/DL (32-36); Mean Corpuscular Hemoglobin 31 PG (27-34); Mean Corpuscular Volume 101.1 FL (87-102); Mean Platelet Volume 8.7 FL (9.6-12.0); Monocytes # 0.8 10*3/uL (0.11-0.8); Monocytes % 6.4 % (1.7-12.7); Neutrophils # 10.6 10*3/uL (1.4-7.4); Neutrophils % 85.6 % (38.7-73.9); Platelet Count 254 T/CUMM (130-400); Red Blood Count 3.59 MC/CUMM (3.8-5.5); Red Cell Distribution Width 14.7 % (9.3-17.3); White Blood Count 12.4 T/CUMM (4-12)
[2018-12-22 06:53] LABS: Calcium 8.6 MG/DL (8.5-10.1); Osmolality,Calculated 291.8 MOS/KG (273-304); Potassium 4.8 MMOL/L (3.5-5.1)
[2018-12-22] MEDS: ATENOLOL 50 MG TABLET PO SCH ×2 (10:10→21:14)
[2018-12-22] MEDS: amLODIPine 10 MG TABLET PO SCH (10:10)
[2018-12-22] MEDS: EZETIMIBE 10 MG TABLET PO SCH (10:11)
[2018-12-22] MEDS: FUROSEMIDE 40 MG TABLET PO SCH (10:11)
[2018-12-22] MEDS: PANTOPRAZOLE 40 MG TABLET PO SCH (10:11)
[2018-12-22] MEDS: metFORMIN 500 MG TABLET PO SCH (10:11)
[2018-12-22] MEDS: DOCUSATE SODIUM 100 MG CAPSULE PO SCH ×2 (10:12→21:17)
[2018-12-22] MEDS: ASPIRIN CHEW 81 MG TABLET PO SCH (10:12)
[2018-12-22] MEDS: AZITHROMYCIN 250 MG TABLET PO SCH (10:13)
[2018-12-22] MEDS: glipiZIDE 5 MG TABLET PO SCH ×2 (10:13→17:49)
[2018-12-22] MEDS: AMITRIPTYLINE 25 MG TABLET PO SCH ×2 (10:19→21:14)
[2018-12-22] MEDS: NON-FORMULARY MEDICATION (Canagliflozin [Invokana] 100 MG) PO SCH (10:40)
[2018-12-22] MEDS: FERROUS SULFATE 325 MG TABLET PO SCH ×2 (10:41→21:13)
[2018-12-22] MEDS: INSULIN GLARGINE 100 UNIT/ML SUBCUT SCH ×2 (10:41→21:14)
[2018-12-22] MEDS: methylPREDNISolone SOD SUC 40 MG/1 ML VIAL IV SCH ×3 (10:42→21:14)
[2018-12-22] MEDS: SODIUM CHLORIDE 0.9% 1,000 ML IV SCH (12:33)
[2018-12-22] MEDS: ENOXAPARIN 30 MG/0.3 ML SYRINGE SUBCUT SCH (12:42)
[2018-12-22] MEDS: DIGOXIN 0.125 MG TABLET PO SCH (12:42)
[2018-12-22] MEDS: cefTRIAXone 1,000 MG in SYRINGE 1 EACH IV SCH (14:58)
[2018-12-22] MEDS: CLORAZEPATE 7.5 MG TABLET PO SCH ×2 (15:01→21:20)
[2018-12-22] MEDS: ISOSORBIDE MONONITRATE 30 MG TABLET PO SCH (21:14)
[2018-12-23] MEDS: INSULIN REGULAR 100 UNIT/ML SUBCUT SCH ×4 (01:11→17:28)
[2018-12-23 04:11] LABS: INR 1.2; PT Patient Result 13.3 SECS
[2018-12-23] MEDS: ALBUTEROL/IPRATROPIUM 3 ML NEB RESP TX SCH ×6 (04:25→23:54)
[2018-12-23] MEDS ORDERED: diphenhydrAMINE CAP 50 MG CAPSULE ONE (06:38)
[2018-12-23] MEDS ORDERED: DIAZEPAM 5 MG TABLET ONE (06:39)
[2018-12-23] MEDS ORDERED: LIDOCAINE 1% 20 ML VIAL ONE (06:43)
[2018-12-23] MEDS ORDERED: diphenhydrAMINE CAP 50 MG CAPSULE PO ONE (06:44)
[2018-12-23] MEDS ORDERED: MIDAZOLAM 2 MG/2 ML VIAL ONE (07:14)
[2018-12-23] MEDS ORDERED: fentaNYL 100 MCG/2 ML VIAL ONE (07:14)
[2018-12-23] MEDS ORDERED: diphenhydrAMINE CAP 25 MG CAPSULE PO ONE (07:30)
[2018-12-23] MEDS ORDERED: DIAZEPAM 5 MG TABLET PO ONE (07:30)
[2018-12-23] MEDS: SODIUM CHLORIDE 0.9% 1,000 ML IV SCH (08:52)
[2018-12-23] MEDS: methylPREDNISolone SOD SUC 40 MG/1 ML VIAL IV SCH ×2 (09:21→22:32)
[2018-12-23] MEDS: INSULIN GLARGINE 100 UNIT/ML SUBCUT SCH ×2 (09:25→22:31)
[2018-12-23] MEDS: NON-FORMULARY MEDICATION (Canagliflozin [Invokana] 100 MG) PO SCH (09:25)
[2018-12-23] MEDS: AZITHROMYCIN 250 MG TABLET PO SCH (11:15)
[2018-12-23] MEDS: FUROSEMIDE 40 MG TABLET PO SCH (11:15)
[2018-12-23] MEDS: glipiZIDE 5 MG TABLET PO SCH ×2 (11:15→16:57)
[2018-12-23] MEDS: EZETIMIBE 10 MG TABLET PO SCH (11:15)
[2018-12-23] MEDS: DOCUSATE SODIUM 100 MG CAPSULE PO SCH ×2 (11:15→22:31)
[2018-12-23] MEDS: amLODIPine 10 MG TABLET PO SCH (11:15)
[2018-12-23] MEDS: FERROUS SULFATE 325 MG TABLET PO SCH ×2 (11:16→22:31)
[2018-12-23] MEDS: ATENOLOL 50 MG TABLET PO SCH ×2 (11:16→22:32)
[2018-12-23] MEDS: PANTOPRAZOLE 40 MG TABLET PO SCH (11:16)
[2018-12-23] MEDS: ASPIRIN CHEW 81 MG TABLET PO SCH (11:17)
[2018-12-23] MEDS: CLORAZEPATE 7.5 MG TABLET PO SCH ×2 (11:17→22:32)
[2018-12-23] MEDS: ENOXAPARIN 30 MG/0.3 ML SYRINGE SUBCUT SCH (12:33)
[2018-12-23] MEDS: DIGOXIN 0.125 MG TABLET PO SCH (16:56)
[2018-12-23] MEDS: WARFARIN 3 MG TABLET PO SCH (17:05)
[2018-12-23] MEDS: ISOSORBIDE MONONITRATE 30 MG TABLET PO SCH (22:31)
[2018-12-23] MEDS: AMITRIPTYLINE 25 MG TABLET PO SCH (22:31)
[2018-12-24] MEDS: SODIUM CHLORIDE 0.9% 1,000 ML IV SCH ×2 (00:19→08:30)
[2018-12-24] MEDS: INSULIN REGULAR 100 UNIT/ML SUBCUT SCH ×2 (00:33→06:15)
[2018-12-24] MEDS: ALBUTEROL/IPRATROPIUM 3 ML NEB RESP TX SCH ×2 (03:51→07:56)
[2018-12-24 05:10] LABS: Basophils % 0.1 % (0.0-0.8); Eosinophils % 0.3 % (0.00-10.9); Hematocrit 34.4 VOL% (42.0-52.0); Hemoglobin 10.8 GM/DL (14.0-18.0); Immature Granulocytes % 1.4 %; Immature Granulocytes Absolute 0.13 #; Lymphocytes # 0.6 10*3/uL (1.4-4.0); Mean Corpuscular HGB Conc 31.4 GM/DL (32-36); Mean Corpuscular Hemoglobin 31 PG (27-34); Mean Corpuscular Volume 99.1 FL (87-102); Mean Platelet Volume 9.6 FL (9.6-12.0); Monocytes # 0.5 10*3/uL (0.11-0.8); Monocytes % 5.3 % (1.7-12.7); Neutrophils # 7.9 10*3/uL (1.4-7.4); Neutrophils % 86.9 % (38.7-73.9); Platelet Count 253 T/CUMM (130-400); Red Blood Count 3.47 MC/CUMM (3.8-5.5); Red Cell Distribution Width 14.4 % (9.3-17.3); White Blood Count 9.1 T/CUMM (4-12)
[2018-12-24 05:14] LABS: Calcium 8.4 MG/DL (8.5-10.1); Osmolality,Calculated 291.7 MOS/KG (273-304); Potassium 4.5 MMOL/L (3.5-5.1)
[2018-12-24 05:27] LABS: Calcium 8.3 MG/DL (8.5-10.1); Osmolality,Calculated 293.5 MOS/KG (273-304); Potassium 4.4 MMOL/L (3.5-5.1)
[2018-12-24 08:10] VITALS: BP 165/65
[2018-12-24] MEDS: EZETIMIBE 10 MG TABLET PO SCH (08:25)
[2018-12-24] MEDS: DOCUSATE SODIUM 100 MG CAPSULE PO SCH (08:25)
[2018-12-24] MEDS: glipiZIDE 5 MG TABLET PO SCH (08:25)
[2018-12-24] MEDS: PANTOPRAZOLE 40 MG TABLET PO SCH (08:25)
[2018-12-24] MEDS: FUROSEMIDE 40 MG TABLET PO SCH (08:25)
[2018-12-24] MEDS: ASPIRIN CHEW 81 MG TABLET PO SCH (08:25)
[2018-12-24] MEDS: CLORAZEPATE 7.5 MG TABLET PO SCH (08:25)
[2018-12-24] MEDS: FERROUS SULFATE 325 MG TABLET PO SCH (08:25)
[2018-12-24] MEDS: ATENOLOL 50 MG TABLET PO SCH (08:25)
[2018-12-24] MEDS: amLODIPine 10 MG TABLET PO SCH (08:25)
[2018-12-24] MEDS: methylPREDNISolone SOD SUC 40 MG/1 ML VIAL IV SCH (08:26)
[2018-12-24] MEDS: INSULIN GLARGINE 100 UNIT/ML SUBCUT SCH (08:26)
[2018-12-24] MEDS: NON-FORMULARY MEDICATION (Canagliflozin [Invokana] 100 MG) PO SCH (08:30)
== END 2018-12-24 11:20 | disposition home or self-care (01) | DRG 286 ==
LOC: N.ED 08:51 → N.EDINP 10:25 → N.TELES 11:56
PROVIDERS: ADMIT Family Medicine; ATTEND Family Medicine

== ENCOUNTER 2019-09-13 09:53 | Inpatient (IN) ==
[2019-09-13] MEDS ORDERED: ASPIRIN 325 MG TABLET PO STA (10:57)
[2019-09-13] MEDS ORDERED: NITROGLYCERIN 2% OINT 1 INCH/GM PACK TOP STA (10:57)
[2019-09-13 11:28] LABS: Basophils # 0.1 10*3/uL (0.0-0.2); Basophils % 0.8 % (0.0-0.8); Eosinophils # 0.1 10*3/uL (0.0-0.87); Eosinophils % 1.9 % (0.00-10.9); Hematocrit 41.6 VOL% (42.0-52.0); Hemoglobin 13.6 GM/DL (14.0-18.0); Immature Granulocytes % 0.8 %; Immature Granulocytes Absolute 0.06 #; Lymphocytes # 0.6 10*3/uL (1.4-4.0); Lymphocytes % 7.7 % (21.2-54.2); Mean Corpuscular HGB Conc 32.7 GM/DL (32-36); Mean Corpuscular Volume 97.4 FL (87-102); Mean Platelet Volume 9.2 FL (9.6-12.0); Monocytes % 10.7 % (1.7-12.7); Neutrophils % 78.1 % (38.7-73.9); Platelet Count 229 T/CUMM (130-400); Red Blood Count 4.27 MC/CUMM (3.8-5.5); Red Cell Distribution Width 14.4 % (9.3-17.3); White Blood Count 7.3 T/CUMM (4-12)
[2019-09-13 11:34] LABS: INR 1.7; PT Patient Result 18.7 SECS (9.6-12.2); Partial Thromboplastin Time 29.7 SECS (20.8-36.0)
[2019-09-13 11:44] LABS: Bilirubin,Total 0.6 MG/DL (0.2-1.0); Calcium 8.4 MG/DL (8.5-10.1); Osmolality,Calculated 280.4 MOS/KG (273-304); Total Protein 7.5 G/DL (6.4-8.3)
[2019-09-13] MEDS ORDERED: FUROSEMIDE 40 MG/4 ML VIAL IV STA ×2 (13:41→14:20)
[2019-09-13] MEDS ORDERED: FUROSEMIDE 40 MG/4 ML VIAL ONE (13:42)
[2019-09-13] MEDS ORDERED: GLUCAGON 1 MG VIAL IM PRN (16:41)
[2019-09-13] MEDS ORDERED: ACETAMINOPHEN 325 MG TABLET PO PRN (16:41)
[2019-09-13] MEDS ORDERED: DEXTROSE 10% 25 GM/250 ML BAG IV PRN (16:41)
[2019-09-13] MEDS ORDERED: ONDANSETRON 4 MG/2 ML VIAL IV PRN (16:41)
[2019-09-13] MEDS ORDERED: SODIUM CHLORIDE 0.9% 1,000 ML IV SCH (16:41)
[2019-09-13] MEDS ORDERED: INFLUENZA VIRUS VACCINE 0.5 ML SYRINGE IM ONE (17:00)
[2019-09-13] MEDS: INSULIN LISPRO 100 UNIT/ML SUBCUT SCH ×2 (17:22→20:58)
[2019-09-13] MEDS ORDERED: NITROGLYCERIN SL 0.4 MG TABLET SL PRN (18:04)
[2019-09-13] MEDS ORDERED: WARFARIN 2 MG TABLET PO SCH (18:30)
[2019-09-13] MEDS ORDERED: FUROSEMIDE 20 MG/2 ML VIAL IV ONE (20:00)
[2019-09-13] MEDS: ATENOLOL 25 MG TABLET PO SCH (20:26)
[2019-09-13] MEDS: ASCORBIC ACID 500 MG TABLET PO SCH (20:26)
[2019-09-13] MEDS: CLORAZEPATE 3.75 MG TABLET PO SCH (20:26)
[2019-09-13] MEDS: DOCUSATE SODIUM 100 MG CAPSULE PO SCH (20:26)
[2019-09-13] MEDS: FUROSEMIDE 20 MG TABLET PO SCH (20:57)
[2019-09-13] MEDS ORDERED: ISOSORBIDE MONONITRATE 30 MG TABLET PO SCH (21:00)
[2019-09-13] MEDS ORDERED: INSULIN GLARGINE 100 UNIT/ML SUBCUT SCH (21:00)
[2019-09-13] MEDS ORDERED: AMITRIPTYLINE 25 MG TABLET PO SCH (21:00)
[2019-09-14 05:34] LABS: Basophils # 0.1 10*3/uL (0.0-0.2); Basophils % 0.9 % (0.0-0.8); Eosinophils # 0.3 10*3/uL (0.0-0.87); Eosinophils % 4.9 % (0.00-10.9); Hematocrit 36.7 VOL% (42.0-52.0); Hemoglobin 11.8 GM/DL (14.0-18.0); Immature Granulocytes % 0.3 %; Immature Granulocytes Absolute 0.02 #; Lymphocytes # 0.8 10*3/uL (1.4-4.0); Lymphocytes % 13.1 % (21.2-54.2); Mean Corpuscular HGB Conc 32.2 GM/DL (32-36); Mean Corpuscular Volume 97.9 FL (87-102); Mean Platelet Volume 9.4 FL (9.6-12.0); Monocytes % 15.3 % (1.7-12.7); Neutrophils % 65.5 % (38.7-73.9); Platelet Count 200 T/CUMM (130-400); Red Blood Count 3.75 MC/CUMM (3.8-5.5); Red Cell Distribution Width 14.3 % (9.3-17.3); White Blood Count 6.3 T/CUMM (4-12)
[2019-09-14 05:54] LABS: Calcium 8.5 MG/DL (8.5-10.1); Osmolality,Calculated 284.5 MOS/KG (273-304)
[2019-09-14] MEDS: INSULIN LISPRO 100 UNIT/ML SUBCUT SCH ×2 (07:34→11:38)
[2019-09-14] MEDS ORDERED: glipiZIDE 5 MG TABLET PO SCH (08:00)
[2019-09-14 08:31] VITALS: BP 145/70
[2019-09-14] MEDS: ATENOLOL 25 MG TABLET PO SCH (08:47)
[2019-09-14] MEDS: ASCORBIC ACID 500 MG TABLET PO SCH (08:48)
[2019-09-14] MEDS: CLORAZEPATE 3.75 MG TABLET PO SCH (08:48)
[2019-09-14] MEDS: DOCUSATE SODIUM 100 MG CAPSULE PO SCH (08:49)
[2019-09-14] MEDS: FUROSEMIDE 20 MG TABLET PO SCH (08:49)
[2019-09-14] MEDS ORDERED: PANTOPRAZOLE 40 MG TABLET PO SCH (09:00)
[2019-09-14] MEDS ORDERED: INSULIN GLARGINE 100 UNIT/ML SUBCUT SCH (09:00)
[2019-09-14] MEDS ORDERED: EZETIMIBE 10 MG TABLET PO SCH (09:00)
[2019-09-14] MEDS ORDERED: amLODIPine 10 MG TABLET PO SCH (09:00)
[2019-09-14] MEDS ORDERED: SERTRALINE 50 MG TABLET PO SCH (09:00)
[2019-09-14] MEDS ORDERED: DIGOXIN 0.125 MG TABLET PO SCH (13:00)
[2019-09-14] MEDS ORDERED: WARFARIN 3 MG TABLET PO SCH (18:00)
== END 2019-09-14 11:37 | disposition home or self-care (01) | DRG 880 ==
LOC: N.ED 09:53 → N.EDINP 14:21 → N.2E 15:57
PROVIDERS: ADMIT Family Medicine; ATTEND Family Medicine

== ENCOUNTER 2019-09-18 09:41 | Inpatient (IN) ==
[2019-09-18 10:43] LABS: Basophils # 0.1 10*3/uL (0.0-0.2); Basophils % 1.2 % (0.0-0.8); Eosinophils # 0.3 10*3/uL (0.0-0.87); Eosinophils % 5.2 % (0.00-10.9); Hematocrit 39.8 VOL% (42.0-52.0); Hemoglobin 12.9 GM/DL (14.0-18.0); Immature Granulocytes % 0.7 %; Immature Granulocytes Absolute 0.04 #; Lymphocytes # 0.6 10*3/uL (1.4-4.0); Lymphocytes % 9.9 % (21.2-54.2); Mean Corpuscular HGB Conc 32.4 GM/DL (32-36); Mean Corpuscular Volume 97.8 FL (87-102); Mean Platelet Volume 9.2 FL (9.6-12.0); Monocytes % 8.8 % (1.7-12.7); Neutrophils % 74.2 % (38.7-73.9); Platelet Count 200 T/CUMM (130-400); Red Blood Count 4.07 MC/CUMM (3.8-5.5); Red Cell Distribution Width 14.6 % (9.3-17.3); White Blood Count 5.9 T/CUMM (4-12)
[2019-09-18 10:59] LABS: INR 1.6; PT Patient Result 17.4 SECS (9.6-12.2); Partial Thromboplastin Time 28.5 SECS (20.8-36.0)
[2019-09-18 11:06] LABS: Bilirubin,Total 0.4 MG/DL (0.2-1.0); Osmolality,Calculated 283.8 MOS/KG (273-304); Total Protein 7.4 G/DL (6.4-8.3); Troponin I < 0.015 NG/ML (0.00-0.045)
[2019-09-18] MEDS ORDERED: GLUCAGON 1 MG VIAL IM PRN (17:52)
[2019-09-18] MEDS ORDERED: ONDANSETRON 4 MG/2 ML VIAL IV PRN (17:52)
[2019-09-18] MEDS ORDERED: DEXTROSE 10% 25 GM/250 ML BAG IV PRN (17:52)
[2019-09-18] MEDS ORDERED: NITROGLYCERIN SL 0.4 MG TABLET SL PRN (17:52)
[2019-09-18 18:44] LABS: Troponin I 0.029 NG/ML (0.00-0.045)
[2019-09-18] MEDS: INSULIN REGULAR 100 UNIT/ML SUBCUT SCH (18:46)
[2019-09-18] MEDS: ISOSORBIDE MONONITRATE 30 MG TABLET PO SCH (21:35)
[2019-09-18] MEDS: CLORAZEPATE 3.75 MG TABLET PO SCH (21:37)
[2019-09-18] MEDS: ATENOLOL 25 MG TABLET PO SCH (21:38)
[2019-09-18] MEDS: WARFARIN 2 MG TABLET PO SCH (21:38)
[2019-09-18] MEDS: glipiZIDE 5 MG TABLET PO SCH (21:41)
[2019-09-18] MEDS: ASCORBIC ACID 500 MG TABLET PO SCH (21:41)
[2019-09-18] MEDS: DOCUSATE SODIUM 100 MG CAPSULE PO SCH (21:42)
[2019-09-18] MEDS: MULTIVITAMIN (OCUVITE) TABLET PO SCH (21:42)
[2019-09-18] MEDS: ACETAMINOPHEN 325 MG TABLET PO PRN (21:48)
[2019-09-18 22:51] LABS: Troponin I 0.021 NG/ML (0.00-0.045)
[2019-09-19] MEDS: INSULIN REGULAR 100 UNIT/ML SUBCUT SCH ×4 (02:56→17:48)
[2019-09-19] MEDS ORDERED: amLODIPine 10 MG TABLET PO SCH (09:00)
[2019-09-19] MEDS: ASCORBIC ACID 500 MG TABLET PO SCH ×2 (10:00→21:19)
[2019-09-19] MEDS ORDERED: metOLazone 5 MG TABLET PO ONE (10:00)
[2019-09-19] MEDS: glipiZIDE 5 MG TABLET PO SCH ×2 (10:00→21:19)
[2019-09-19] MEDS: ATENOLOL 25 MG TABLET PO SCH ×2 (10:00→21:19)
[2019-09-19] MEDS: SERTRALINE 50 MG TABLET PO SCH (10:00)
[2019-09-19] MEDS: CLORAZEPATE 3.75 MG TABLET PO SCH ×2 (10:00→21:20)
[2019-09-19] MEDS: MULTIVITAMIN (OCUVITE) TABLET PO SCH ×2 (10:00→21:23)
[2019-09-19] MEDS: DOCUSATE SODIUM 100 MG CAPSULE PO SCH ×2 (10:00→21:19)
[2019-09-19] MEDS: PANTOPRAZOLE 40 MG TABLET PO SCH (10:01)
[2019-09-19] MEDS: OMEGA 3 ACID ETHYL ESTERS 1 GM CAPSULE PO SCH (10:01)
[2019-09-19] MEDS: MULTIVITAMIN (CENTRUM) TABLET PO SCH (10:01)
[2019-09-19] MEDS: EZETIMIBE 10 MG TABLET PO SCH (10:01)
[2019-09-19] MEDS: FUROSEMIDE 40 MG/4 ML VIAL IV SCH ×2 (10:02→16:21)
[2019-09-19] MEDS: CYANOCOBALAMIN 500 MCG TABLET PO SCH (10:08)
[2019-09-19] MEDS: ACETAMINOPHEN 325 MG TABLET PO PRN (10:10)
[2019-09-19] MEDS: DIGOXIN 0.125 MG TABLET PO SCH (14:40)
[2019-09-19] MEDS: WARFARIN 2 MG TABLET PO SCH (18:10)
[2019-09-19] MEDS: ISOSORBIDE MONONITRATE 30 MG TABLET PO SCH (21:19)
[2019-09-20] MEDS: INSULIN REGULAR 100 UNIT/ML SUBCUT SCH ×4 (02:07→17:34)
[2019-09-20 05:34] LABS: Basophils # 0.1 10*3/uL (0.0-0.2); Basophils % 0.8 % (0.0-0.8); Eosinophils # 0.5 10*3/uL (0.0-0.87); Eosinophils % 8.2 % (0.00-10.9); Hematocrit 37.8 VOL% (42.0-52.0); Hemoglobin 12.2 GM/DL (14.0-18.0); Immature Granulocytes % 0.5 %; Immature Granulocytes Absolute 0.03 #; Lymphocytes # 1.1 10*3/uL (1.4-4.0); Lymphocytes % 16.9 % (21.2-54.2); Mean Corpuscular HGB Conc 32.3 GM/DL (32-36); Mean Corpuscular Volume 97.2 FL (87-102); Mean Platelet Volume 9.6 FL (9.6-12.0); Monocytes % 11.5 % (1.7-12.7); Neutrophils % 62.1 % (38.7-73.9); Platelet Count 218 T/CUMM (130-400); Red Blood Count 3.89 MC/CUMM (3.8-5.5); Red Cell Distribution Width 14.8 % (9.3-17.3); White Blood Count 6.6 T/CUMM (4-12)
[2019-09-20 05:41] LABS: INR 1.7; PT Patient Result 18.2 SECS (9.6-12.2)
[2019-09-20 05:59] LABS: Calcium 9.3 MG/DL (8.5-10.1); Osmolality,Calculated 276.2 MOS/KG (273-304)
[2019-09-20] MEDS ORDERED: hydrALAZINE 25 MG TABLET PO ONE (09:57)
[2019-09-20] MEDS: ASCORBIC ACID 500 MG TABLET PO SCH ×2 (10:09→21:35)
[2019-09-20] MEDS: MULTIVITAMIN (OCUVITE) TABLET PO SCH ×2 (10:09→21:34)
[2019-09-20] MEDS: CYANOCOBALAMIN 500 MCG TABLET PO SCH (10:09)
[2019-09-20] MEDS: DOCUSATE SODIUM 100 MG CAPSULE PO SCH ×2 (10:10→21:35)
[2019-09-20] MEDS: SERTRALINE 50 MG TABLET PO SCH (10:10)
[2019-09-20] MEDS: glipiZIDE 5 MG TABLET PO SCH ×2 (10:10→21:35)
[2019-09-20] MEDS: TAMSULOSIN 0.4 MG CAPSULE PO SCH (10:10)
[2019-09-20] MEDS: MULTIVITAMIN (CENTRUM) TABLET PO SCH (10:10)
[2019-09-20] MEDS: EZETIMIBE 10 MG TABLET PO SCH (10:10)
[2019-09-20] MEDS: CLORAZEPATE 3.75 MG TABLET PO SCH ×2 (10:11→21:34)
[2019-09-20] MEDS: ATENOLOL 25 MG TABLET PO SCH ×2 (10:11→21:35)
[2019-09-20] MEDS: PANTOPRAZOLE 40 MG TABLET PO SCH (10:11)
[2019-09-20] MEDS: FUROSEMIDE 40 MG/4 ML VIAL IV SCH ×2 (10:13→15:48)
[2019-09-20] MEDS: OMEGA 3 ACID ETHYL ESTERS 1 GM CAPSULE PO SCH (10:30)
[2019-09-20] MEDS: INSULIN GLARGINE 100 UNIT/ML SUBCUT SCH (10:31)
[2019-09-20] MEDS: metOLazone 5 MG TABLET PO SCH (10:40)
[2019-09-20] MEDS: DIGOXIN 0.125 MG TABLET PO SCH (13:04)
[2019-09-20] MEDS: WARFARIN 2 MG TABLET PO SCH (17:35)
[2019-09-20] MEDS: ISOSORBIDE MONONITRATE 30 MG TABLET PO SCH (21:35)
[2019-09-20] MEDS: AMITRIPTYLINE 10 MG TABLET PO SCH (21:39)
[2019-09-21] MEDS: INSULIN REGULAR 100 UNIT/ML SUBCUT SCH ×4 (01:23→17:33)
[2019-09-21 08:46] LABS: Calcium 8.7 MG/DL (8.5-10.1); Osmolality,Calculated 281.1 MOS/KG (273-304)
[2019-09-21] MEDS: MULTIVITAMIN (OCUVITE) TABLET PO SCH ×2 (09:17→23:08)
[2019-09-21] MEDS: OMEGA 3 ACID ETHYL ESTERS 1 GM CAPSULE PO SCH (09:17)
[2019-09-21] MEDS: PANTOPRAZOLE 40 MG TABLET PO SCH (09:17)
[2019-09-21] MEDS: CLORAZEPATE 3.75 MG TABLET PO SCH ×2 (09:17→23:05)
[2019-09-21] MEDS: EZETIMIBE 10 MG TABLET PO SCH (09:17)
[2019-09-21] MEDS: metOLazone 5 MG TABLET PO SCH (09:17)
[2019-09-21] MEDS: ATENOLOL 25 MG TABLET PO SCH ×2 (09:18→23:05)
[2019-09-21] MEDS: MULTIVITAMIN (CENTRUM) TABLET PO SCH (09:18)
[2019-09-21] MEDS: SERTRALINE 50 MG TABLET PO SCH (09:18)
[2019-09-21] MEDS: CYANOCOBALAMIN 500 MCG TABLET PO SCH (09:19)
[2019-09-21] MEDS: TAMSULOSIN 0.4 MG CAPSULE PO SCH (09:19)
[2019-09-21] MEDS: glipiZIDE 5 MG TABLET PO SCH ×2 (09:19→23:16)
[2019-09-21] MEDS: DOCUSATE SODIUM 100 MG CAPSULE PO SCH ×2 (09:19→23:07)
[2019-09-21] MEDS: FUROSEMIDE 40 MG/4 ML VIAL IV SCH ×2 (09:19→17:09)
[2019-09-21] MEDS: ASCORBIC ACID 500 MG TABLET PO SCH ×2 (09:25→23:05)
[2019-09-21] MEDS: INSULIN GLARGINE 100 UNIT/ML SUBCUT SCH (09:27)
[2019-09-21] MEDS: DIGOXIN 0.125 MG TABLET PO SCH (14:08)
[2019-09-21] MEDS: WARFARIN 2 MG TABLET PO SCH (17:08)
[2019-09-21] MEDS: ISOSORBIDE MONONITRATE 30 MG TABLET PO SCH (23:06)
[2019-09-21] MEDS: AMITRIPTYLINE 10 MG TABLET PO SCH (23:06)
[2019-09-21] MEDS: ACETAMINOPHEN 325 MG TABLET PO PRN (23:11)
[2019-09-22] MEDS: INSULIN REGULAR 100 UNIT/ML SUBCUT SCH ×5 (01:08→23:04)
[2019-09-22 08:25] LABS: INR 1.8; PT Patient Result 19.9 SECS (9.6-12.2)
[2019-09-22 08:36] LABS: Calcium 8.9 MG/DL (8.5-10.1); Osmolality,Calculated 276.4 MOS/KG (273-304)
[2019-09-22] MEDS: MULTIVITAMIN (CENTRUM) TABLET PO SCH (09:57)
[2019-09-22] MEDS: OMEGA 3 ACID ETHYL ESTERS 1 GM CAPSULE PO SCH (09:57)
[2019-09-22] MEDS: FUROSEMIDE 40 MG/4 ML VIAL IV SCH ×2 (09:57→16:02)
[2019-09-22] MEDS: CLORAZEPATE 3.75 MG TABLET PO SCH ×2 (09:57→22:55)
[2019-09-22] MEDS: EZETIMIBE 10 MG TABLET PO SCH (09:57)
[2019-09-22] MEDS: INSULIN GLARGINE 100 UNIT/ML SUBCUT SCH (09:57)
[2019-09-22] MEDS: PANTOPRAZOLE 40 MG TABLET PO SCH (09:58)
[2019-09-22] MEDS: ASCORBIC ACID 500 MG TABLET PO SCH ×2 (09:58→22:58)
[2019-09-22] MEDS: ATENOLOL 25 MG TABLET PO SCH ×2 (09:58→22:56)
[2019-09-22] MEDS: OXYBUTYNIN XL 5 MG TABLET PO SCH (09:58)
[2019-09-22] MEDS: SERTRALINE 50 MG TABLET PO SCH (09:58)
[2019-09-22] MEDS: TAMSULOSIN 0.4 MG CAPSULE PO SCH (09:58)
[2019-09-22] MEDS: DOCUSATE SODIUM 100 MG CAPSULE PO SCH ×2 (09:58→22:57)
[2019-09-22] MEDS: CYANOCOBALAMIN 500 MCG TABLET PO SCH (09:58)
[2019-09-22] MEDS: MULTIVITAMIN (OCUVITE) TABLET PO SCH ×2 (09:58→22:59)
[2019-09-22] MEDS: metOLazone 5 MG TABLET PO SCH (09:58)
[2019-09-22] MEDS: glipiZIDE 5 MG TABLET PO SCH (10:36)
[2019-09-22] MEDS: DIGOXIN 0.125 MG TABLET PO SCH (13:02)
[2019-09-22] MEDS: WARFARIN 2 MG TABLET PO SCH (17:27)
[2019-09-22] MEDS: ISOSORBIDE MONONITRATE 30 MG TABLET PO SCH (22:55)
[2019-09-22] MEDS: AMITRIPTYLINE 10 MG TABLET PO SCH (22:55)
[2019-09-23] MEDS: ACETAMINOPHEN 325 MG TABLET PO PRN (02:30)
[2019-09-23] MEDS: INSULIN REGULAR 100 UNIT/ML SUBCUT SCH (06:31)
[2019-09-23 08:04] VITALS: BP 111/53
[2019-09-23] MEDS: CLORAZEPATE 3.75 MG TABLET PO SCH (09:06)
[2019-09-23] MEDS: MULTIVITAMIN (CENTRUM) TABLET PO SCH (09:06)
[2019-09-23] MEDS: SERTRALINE 50 MG TABLET PO SCH (09:06)
[2019-09-23] MEDS: ATENOLOL 25 MG TABLET PO SCH (09:06)
[2019-09-23] MEDS: OMEGA 3 ACID ETHYL ESTERS 1 GM CAPSULE PO SCH (09:06)
[2019-09-23] MEDS: MULTIVITAMIN (OCUVITE) TABLET PO SCH (09:06)
[2019-09-23] MEDS: metOLazone 5 MG TABLET PO SCH (09:06)
[2019-09-23] MEDS: EZETIMIBE 10 MG TABLET PO SCH (09:06)
[2019-09-23] MEDS: CYANOCOBALAMIN 500 MCG TABLET PO SCH (09:07)
[2019-09-23] MEDS: FUROSEMIDE 40 MG/4 ML VIAL IV SCH (09:07)
[2019-09-23] MEDS: DOCUSATE SODIUM 100 MG CAPSULE PO SCH (09:07)
[2019-09-23] MEDS: TAMSULOSIN 0.4 MG CAPSULE PO SCH (09:07)
[2019-09-23] MEDS: PANTOPRAZOLE 40 MG TABLET PO SCH (09:08)
[2019-09-23] MEDS: OXYBUTYNIN XL 5 MG TABLET PO SCH (09:08)
[2019-09-23] MEDS: ASCORBIC ACID 500 MG TABLET PO SCH (09:08)
[2019-09-23] MEDS: INSULIN GLARGINE 100 UNIT/ML SUBCUT SCH (09:18)
== END 2019-09-23 11:24 | disposition swing bed (61) | DRG 947 ==
LOC: EDUNIT# → N.ED 09:41 → N.EDINP 09:41 → N.TELES 17:26
PROVIDERS: ADMIT Family Medicine; ATTEND Family Medicine

== ENCOUNTER 2019-10-04 13:54 | Inpatient (IN) ==
[2019-10-04 15:16] LABS: Basophils % 0.5 % (0.0-0.8); Eosinophils # 0.2 10*3/uL (0.0-0.87); Hematocrit 36.8 VOL% (42.0-52.0); Hemoglobin 12.4 GM/DL (14.0-18.0); Immature Granulocytes % 1.2 %; Immature Granulocytes Absolute 0.09 #; Lymphocytes # 0.6 10*3/uL (1.4-4.0); Lymphocytes % 7.8 % (21.2-54.2); Mean Corpuscular HGB Conc 33.7 GM/DL (32-36); Mean Corpuscular Volume 92.5 FL (87-102); Mean Platelet Volume 9.7 FL (9.6-12.0); Monocytes % 8.3 % (1.7-12.7); Neutrophils % 79.2 % (38.7-73.9); Platelet Count 206 T/CUMM (130-400); Red Blood Count 3.98 MC/CUMM (3.8-5.5); White Blood Count 7.5 T/CUMM (4-12)
[2019-10-04 15:34] LABS: Albumin 2.8 G/DL (3.4-5.0); Bilirubin,Total 0.4 MG/DL (0.2-1.0); Calcium 8.7 MG/DL (8.5-10.1); Osmolality,Calculated 288.5 MOS/KG (273-304)
[2019-10-04] MEDS ORDERED: SODIUM CHLORIDE 0.9% 500 ML IV STA (15:45)
[2019-10-04] MEDS ORDERED: DEXTROSE 10% 250 ML BAG IV PRN (17:53)
[2019-10-04] MEDS ORDERED: GLUCAGON 1 MG VIAL IM PRN (17:53)
[2019-10-04] MEDS ORDERED: ONDANSETRON 4 MG/2 ML VIAL IV PRN (17:53)
[2019-10-04] MEDS ORDERED: ACETAMINOPHEN 325 MG TABLET PO PRN (17:53)
[2019-10-04] MEDS: SODIUM CHLORIDE 0.9% 1,000 ML IV SCH (18:04)
[2019-10-04] MEDS: INSULIN LISPRO 100 UNIT/ML SUBCUT SCH ×2 (18:19→21:32)
[2019-10-04] MEDS: DOCUSATE SODIUM 100 MG CAPSULE PO SCH (21:37)
[2019-10-05] MEDS: SODIUM CHLORIDE 0.9% 1,000 ML IV SCH ×3 (02:11→18:20)
[2019-10-05 05:43] LABS: Basophils # 0.1 10*3/uL (0.0-0.2); Basophils % 0.7 % (0.0-0.8); Eosinophils # 0.4 10*3/uL (0.0-0.87); Eosinophils % 4.6 % (0.00-10.9); Hematocrit 37.1 VOL% (42.0-52.0); Hemoglobin 12.3 GM/DL (14.0-18.0); Immature Granulocytes % 0.8 %; Immature Granulocytes Absolute 0.06 #; Lymphocytes # 1.1 10*3/uL (1.4-4.0); Lymphocytes % 14.3 % (21.2-54.2); Mean Corpuscular HGB Conc 33.2 GM/DL (32-36); Mean Corpuscular Volume 92.5 FL (87-102); Mean Platelet Volume 10.1 FL (9.6-12.0); Monocytes % 11.7 % (1.7-12.7); Neutrophils % 67.9 % (38.7-73.9); Platelet Count 221 T/CUMM (130-400); Red Blood Count 4.01 MC/CUMM (3.8-5.5); Red Cell Distribution Width 13.1 % (9.3-17.3); White Blood Count 7.6 T/CUMM (4-12)
[2019-10-05 06:24] LABS: Albumin 2.9 G/DL (3.4-5.0); Bilirubin,Total 0.8 MG/DL (0.2-1.0); Calcium 9.2 MG/DL (8.5-10.1); Osmolality,Calculated 289.1 MOS/KG (273-304); Total Protein 7.9 G/DL (6.4-8.3)
[2019-10-05] MEDS: INSULIN LISPRO 100 UNIT/ML SUBCUT SCH ×4 (08:33→23:03)
[2019-10-05] MEDS: DOCUSATE SODIUM 100 MG CAPSULE PO SCH ×2 (08:34→23:05)
[2019-10-05] MEDS ORDERED: PANTOPRAZOLE 40 MG TABLET PO SCH (09:00)
[2019-10-05] MEDS ORDERED: NITROGLYCERIN SL 0.4 MG TABLET SL PRN (09:33)
[2019-10-05 10:44] LABS: INR 1.6; PT Patient Result 17.4 SECS (9.6-12.2)
[2019-10-05] MEDS ORDERED: WARFARIN 2 MG TABLET PO ONE (12:47)
[2019-10-05] MEDS ORDERED: FUROSEMIDE 40 MG/4 ML VIAL IV ONE (12:49)
[2019-10-05] MEDS: chlorproMAZINE 25 MG TABLET PO SCH ×2 (16:47→23:42)
[2019-10-05 17:51] LABS: Apearance,Urine CLEAR (Clear); Bacteria,Urine Occasional /HPF (Few); Bilirubin,Urine Negative (Negative); Blood, Urine Negative (Negative); Glucose,Urine (UA) Negative (Negative); Ketones,Urine Negative (Negative); Nitrite,Urine Negative (Negative); Protein,Urine 30 MG/DL; RBC,Urine 2 /HPF (0-4); Urine Color Straw (Yellow); Urine Specific Gravity 1.006 (1.001-1.035); Urine Urobilinogen < 2.0 EU/DL (0.2-1.0); WBC,Urine 1 /HPF (0-6)
[2019-10-05] MEDS ORDERED: WARFARIN 2 MG TABLET PO SCH (18:00)
[2019-10-05] MEDS ORDERED: MORPHINE 4 MG/1 ML VIAL IV PRN ×2 (20:02)
[2019-10-05] MEDS ORDERED: CALCIUM CARBONATE CHEW 500 MG TABLET PO PRN (20:03)
[2019-10-05] MEDS ORDERED: AMITRIPTYLINE 10 MG TABLET PO SCH (21:00)
[2019-10-05] MEDS ORDERED: CLORAZEPATE 3.75 MG TABLET PO SCH (21:00)
[2019-10-05] MEDS ORDERED: MORPHINE 4 MG/1 ML VIAL IV ONE (21:11)
[2019-10-05] MEDS ORDERED: ALUM/MAG/SIMETH/LIDO VISC 1:1 30 ML BOTTLE PO ONE (21:11)
[2019-10-05] MEDS: MULTIVITAMIN (OCUVITE) TABLET PO SCH (23:04)
[2019-10-05] MEDS: ASCORBIC ACID 500 MG TABLET PO SCH (23:04)
[2019-10-05] MEDS: ISOSORBIDE MONONITRATE 30 MG TABLET PO SCH (23:05)
[2019-10-05] MEDS: PANTOPRAZOLE 40 MG TABLET PO SCH (23:05)
[2019-10-05] MEDS: atenoloL 25 MG TABLET PO SCH (23:05)
[2019-10-05] MEDS: FOLIC ACID 1 MG TABLET PO SCH (23:05)
[2019-10-05] MEDS: THIAMINE 100 MG TABLET PO SCH (23:05)
[2019-10-06 02:26] LABS: Basophils % 0.2 % (0.0-0.8); Eosinophils % 0.1 % (0.00-10.9); Hematocrit 36.2 VOL% (42.0-52.0); Hemoglobin 11.8 GM/DL (14.0-18.0); Immature Granulocytes % 1.1 %; Immature Granulocytes Absolute 0.11 #; Lymphocytes # 0.5 10*3/uL (1.4-4.0); Lymphocytes % 4.5 % (21.2-54.2); Mean Corpuscular HGB Conc 32.6 GM/DL (32-36); Monocytes % 3.8 % (1.7-12.7); Neutrophils % 90.3 % (38.7-73.9); Platelet Count 204 T/CUMM (130-400); Red Blood Count 3.81 MC/CUMM (3.8-5.5); Red Cell Distribution Width 13.4 % (9.3-17.3); White Blood Count 10.3 T/CUMM (4-12)
[2019-10-06 02:38] LABS: INR 1.9; PT Patient Result 20.9 SECS (9.6-12.2)
[2019-10-06] MEDS: SODIUM CHLORIDE 0.9% 1,000 ML IV SCH ×4 (02:45→17:04)
[2019-10-06 02:50] LABS: Albumin 2.7 G/DL (3.4-5.0); Bilirubin,Total 0.4 MG/DL (0.2-1.0); Calcium 8.4 MG/DL (8.5-10.1); Osmolality,Calculated 297.7 MOS/KG (273-304); Risk Ratio 4.69; Thyroid Stimulating Hormone 1.69 uIU/ml (0.358-3.74); Total Protein 7.6 G/DL (6.4-8.3)
[2019-10-06 03:33] LABS: Sedimentation Rate-Westergren 90 MM/HR (0-20)
[2019-10-06 08:25] LABS: Basophils % 0.2 % (0.0-0.8); Eosinophils % 0.1 % (0.00-10.9); Hematocrit 36.1 VOL% (42.0-52.0); Hemoglobin 11.9 GM/DL (14.0-18.0); Immature Granulocytes Absolute 0.09 #; Lymphocytes # 0.8 10*3/uL (1.4-4.0); Mean Corpuscular Volume 95.3 FL (87-102); Mean Platelet Volume 9.9 FL (9.6-12.0); Monocytes % 7.6 % (1.7-12.7); Neutrophils % 82.1 % (38.7-73.9); Platelet Count 215 T/CUMM (130-400); Red Blood Count 3.79 MC/CUMM (3.8-5.5); Red Cell Distribution Width 13.4 % (9.3-17.3); White Blood Count 9.2 T/CUMM (4-12)
[2019-10-06 08:39] LABS: Partial Thromboplastin Time 32.4 SECS (20.8-36.0)
[2019-10-06 08:44] LABS: INR 2.1
[2019-10-06 08:45] LABS: PT Patient Result 22.6 SECS (9.6-12.2)
[2019-10-06 08:46] LABS: Albumin 2.7 G/DL (3.4-5.0); Bilirubin,Total 0.4 MG/DL (0.2-1.0); Calcium 8.7 MG/DL (8.5-10.1); Osmolality,Calculated 296.7 MOS/KG (273-304); Total Protein 7.6 G/DL (6.4-8.3)
[2019-10-06 08:51] LABS: CKMB % 16.3 %
[2019-10-06 08:54] LABS: Troponin I 33.7 NG/ML (0.00-0.045)
[2019-10-06] MEDS ORDERED: CYANOCOBALAMIN 500 MCG TABLET PO SCH (09:00)
[2019-10-06] MEDS: INSULIN LISPRO 100 UNIT/ML SUBCUT SCH ×4 (09:23→21:45)
[2019-10-06] MEDS: ENOXAPARIN 80 MG/0.8 ML SYRINGE SUBCUT SCH (09:29)
[2019-10-06 10:48] LABS: Apearance,Urine CLEAR (Clear); Bilirubin,Urine Negative (Negative); Blood, Urine Negative (Negative); Glucose,Urine (UA) 150 mg/dL (Negative); Hyaline Casts,Urine 1 /LPF (0-3); Ketones,Urine 5 mg/dL (Negative); Mucus,Urine Occasional /LPF (Occasional); Nitrite,Urine Negative (Negative); Protein,Urine 30 MG/DL; RBC,Urine 7 /HPF (0-4); Squamous Epithelial Cell,Urine Occasional /HPF (0-10); Urine Color Yellow (Yellow); Urine Specific Gravity 1.013 (1.001-1.035); Urine Urobilinogen < 2.0 EU/DL (0.2-1.0); WBC,Urine 1 /HPF (0-6)
[2019-10-06] MEDS: MULTIVITAMIN (CENTRUM) TABLET PO SCH (11:09)
[2019-10-06] MEDS: FOLIC ACID 1 MG TABLET PO SCH ×2 (11:09→21:31)
[2019-10-06] MEDS: OXYBUTYNIN XL 5 MG TABLET PO SCH (11:09)
[2019-10-06] MEDS: DOCUSATE SODIUM 100 MG CAPSULE PO SCH ×2 (11:09→21:31)
[2019-10-06] MEDS: TAMSULOSIN 0.4 MG CAPSULE PO SCH (11:09)
[2019-10-06] MEDS: DIGOXIN 0.125 MG TABLET PO SCH (11:09)
[2019-10-06] MEDS: FUROSEMIDE 40 MG TABLET PO SCH (11:09)
[2019-10-06] MEDS: atenoloL 25 MG TABLET PO SCH ×2 (11:10→21:32)
[2019-10-06] MEDS: PANTOPRAZOLE 40 MG TABLET PO SCH ×2 (11:10→21:46)
[2019-10-06] MEDS: MULTIVITAMIN (OCUVITE) TABLET PO SCH ×2 (11:10→21:31)
[2019-10-06] MEDS: THIAMINE 100 MG TABLET PO SCH ×2 (11:11→21:32)
[2019-10-06] MEDS: SERTRALINE 50 MG TABLET PO SCH (11:11)
[2019-10-06] MEDS: ASCORBIC ACID 500 MG TABLET PO SCH ×2 (11:11→21:32)
[2019-10-06] MEDS: CYANOCOBALAMIN 500 MCG TABLET PO SCH (11:11)
[2019-10-06] MEDS: ASPIRIN EC 81 MG TABLET PO SCH (11:11)
[2019-10-06] MEDS: EZETIMIBE 10 MG TABLET PO SCH (11:11)
[2019-10-06] MEDS: metOLazone 5 MG TABLET PO SCH (11:11)
[2019-10-06] MEDS: OMEGA 3 ACID ETHYL ESTERS 1 GM CAPSULE PO SCH (11:12)
[2019-10-06] MEDS: INSULIN GLARGINE 100 UNIT/ML SUBCUT SCH (12:28)
[2019-10-06 14:45] LABS: CKMB % 13.8 %
[2019-10-06 14:48] LABS: Troponin I 48.5 NG/ML (0.00-0.045)
[2019-10-06 18:15] LABS: CKMB % 12.3 %
[2019-10-06 18:18] LABS: Troponin I 50.5 NG/ML (0.00-0.045)
[2019-10-06] MEDS: WARFARIN 4 MG TABLET PO SCH (18:23)
[2019-10-06 20:46] LABS: Troponin I 37.4 NG/ML (0.00-0.045)
[2019-10-06] MEDS: ISOSORBIDE MONONITRATE 30 MG TABLET PO SCH (21:45)
[2019-10-06] MEDS: ATORVASTATIN 80 MG TABLET PO SCH (21:46)
[2019-10-07 04:53] LABS: Basophils # 0.1 10*3/uL (0.0-0.2); Basophils % 0.8 % (0.0-0.8); Eosinophils # 0.2 10*3/uL (0.0-0.87); Hematocrit 34.2 VOL% (42.0-52.0); Hemoglobin 11.1 GM/DL (14.0-18.0); Immature Granulocytes % 0.7 %; Immature Granulocytes Absolute 0.07 #; Lymphocytes # 1.1 10*3/uL (1.4-4.0); Mean Corpuscular HGB Conc 32.5 GM/DL (32-36); Mean Corpuscular Volume 94.7 FL (87-102); Mean Platelet Volume 10.1 FL (9.6-12.0); Monocytes % 12.6 % (1.7-12.7); Neutrophils % 72.9 % (38.7-73.9); Platelet Count 210 T/CUMM (130-400); Red Blood Count 3.61 MC/CUMM (3.8-5.5); Red Cell Distribution Width 13.3 % (9.3-17.3); White Blood Count 9.6 T/CUMM (4-12)
[2019-10-07 05:00] LABS: INR 1.7; PT Patient Result 18.8 SECS (9.6-12.2)
[2019-10-07] MEDS: SODIUM CHLORIDE 0.9% 1,000 ML IV SCH ×3 (05:34→10:10)
[2019-10-07 05:40] LABS: Troponin I 22.9 NG/ML (0.00-0.045)
[2019-10-07] MEDS: ENOXAPARIN 80 MG/0.8 ML SYRINGE SUBCUT SCH (09:52)
[2019-10-07] MEDS: INSULIN GLARGINE 100 UNIT/ML SUBCUT SCH (09:52)
[2019-10-07] MEDS: INSULIN LISPRO 100 UNIT/ML SUBCUT SCH ×4 (09:52→20:51)
[2019-10-07] MEDS: FOLIC ACID 1 MG TABLET PO SCH ×2 (09:53→20:37)
[2019-10-07] MEDS: FUROSEMIDE 40 MG TABLET PO SCH (09:53)
[2019-10-07] MEDS: CYANOCOBALAMIN 500 MCG TABLET PO SCH (09:53)
[2019-10-07] MEDS: ASCORBIC ACID 500 MG TABLET PO SCH ×2 (09:53→20:38)
[2019-10-07] MEDS: DIGOXIN 0.125 MG TABLET PO SCH (09:53)
[2019-10-07] MEDS: EZETIMIBE 10 MG TABLET PO SCH (09:54)
[2019-10-07] MEDS: TAMSULOSIN 0.4 MG CAPSULE PO SCH (09:54)
[2019-10-07] MEDS: atenoloL 25 MG TABLET PO SCH ×2 (09:54→20:37)
[2019-10-07] MEDS: OMEGA 3 ACID ETHYL ESTERS 1 GM CAPSULE PO SCH (09:54)
[2019-10-07] MEDS: SERTRALINE 50 MG TABLET PO SCH (09:54)
[2019-10-07] MEDS: MULTIVITAMIN (OCUVITE) TABLET PO SCH ×2 (09:54→20:38)
[2019-10-07] MEDS: ASPIRIN EC 81 MG TABLET PO SCH (09:54)
[2019-10-07] MEDS: THIAMINE 100 MG TABLET PO SCH ×2 (09:54→20:38)
[2019-10-07] MEDS: metOLazone 5 MG TABLET PO SCH (09:54)
[2019-10-07] MEDS: MULTIVITAMIN (CENTRUM) TABLET PO SCH (09:54)
[2019-10-07] MEDS: OXYBUTYNIN XL 5 MG TABLET PO SCH (09:55)
[2019-10-07] MEDS: PANTOPRAZOLE 40 MG TABLET PO SCH ×2 (09:55→20:38)
[2019-10-07] MEDS: DOCUSATE SODIUM 100 MG CAPSULE PO SCH ×2 (09:55→20:38)
[2019-10-07] MEDS: POLYETHYLENE GLYCOL POWDER 17 GM PACK PO SCH (11:43)
[2019-10-07] MEDS: ZINC OXIDE PASTE 113 GM TUBE TOP SCH ×2 (15:59→20:39)
[2019-10-07] MEDS: WARFARIN 4 MG TABLET PO SCH (17:13)
[2019-10-07] MEDS: ATORVASTATIN 80 MG TABLET PO SCH (20:38)
[2019-10-07] MEDS: ISOSORBIDE MONONITRATE 30 MG TABLET PO SCH (20:38)
[2019-10-08 06:13] LABS: Basophils # 0.1 10*3/uL (0.0-0.2); Basophils % 0.8 % (0.0-0.8); Eosinophils # 0.2 10*3/uL (0.0-0.87); Eosinophils % 2.9 % (0.00-10.9); Hematocrit 33.7 VOL% (42.0-52.0); Hemoglobin 11.2 GM/DL (14.0-18.0); Immature Granulocytes % 1.1 %; Immature Granulocytes Absolute 0.08 #; Lymphocytes # 0.8 10*3/uL (1.4-4.0); Mean Corpuscular HGB Conc 33.2 GM/DL (32-36); Mean Corpuscular Volume 93.6 FL (87-102); Mean Platelet Volume 9.8 FL (9.6-12.0); Monocytes % 11.9 % (1.7-12.7); Neutrophils % 72.3 % (38.7-73.9); Platelet Count 184 T/CUMM (130-400); Red Cell Distribution Width 13.4 % (9.3-17.3); White Blood Count 7.6 T/CUMM (4-12)
[2019-10-08 06:24] LABS: INR 2.1
[2019-10-08 06:27] LABS: PT Patient Result 22.7 SECS (9.6-12.2)
[2019-10-08 06:38] LABS: Calcium 9.1 MG/DL (8.5-10.1); Osmolality,Calculated 284.8 MOS/KG (273-304)
[2019-10-08] MEDS: INSULIN LISPRO 100 UNIT/ML SUBCUT SCH ×4 (09:31→22:46)
[2019-10-08] MEDS: SODIUM CHLORIDE 0.9% 1,000 ML IV SCH (09:31)
[2019-10-08] MEDS: INSULIN GLARGINE 100 UNIT/ML SUBCUT SCH (09:32)
[2019-10-08] MEDS: ENOXAPARIN 80 MG/0.8 ML SYRINGE SUBCUT SCH (09:33)
[2019-10-08] MEDS: DOCUSATE SODIUM 100 MG CAPSULE PO SCH ×2 (09:34→22:47)
[2019-10-08] MEDS: ASCORBIC ACID 500 MG TABLET PO SCH ×2 (09:34→22:47)
[2019-10-08] MEDS: MULTIVITAMIN (CENTRUM) TABLET PO SCH (09:34)
[2019-10-08] MEDS: POLYETHYLENE GLYCOL POWDER 17 GM PACK PO SCH (09:34)
[2019-10-08] MEDS: EZETIMIBE 10 MG TABLET PO SCH (09:34)
[2019-10-08] MEDS: FUROSEMIDE 40 MG TABLET PO SCH (09:34)
[2019-10-08] MEDS: DIGOXIN 0.125 MG TABLET PO SCH (09:34)
[2019-10-08] MEDS: MULTIVITAMIN (OCUVITE) TABLET PO SCH ×2 (09:34→22:47)
[2019-10-08] MEDS: atenoloL 25 MG TABLET PO SCH ×2 (09:34→22:47)
[2019-10-08] MEDS: CYANOCOBALAMIN 500 MCG TABLET PO SCH (09:34)
[2019-10-08] MEDS: TAMSULOSIN 0.4 MG CAPSULE PO SCH (09:35)
[2019-10-08] MEDS: ASPIRIN EC 81 MG TABLET PO SCH (09:35)
[2019-10-08] MEDS: FOLIC ACID 1 MG TABLET PO SCH ×2 (09:35→22:47)
[2019-10-08] MEDS: OMEGA 3 ACID ETHYL ESTERS 1 GM CAPSULE PO SCH (09:35)
[2019-10-08] MEDS: metOLazone 5 MG TABLET PO SCH (09:35)
[2019-10-08] MEDS: PANTOPRAZOLE 40 MG TABLET PO SCH ×2 (09:35→22:47)
[2019-10-08] MEDS: ZINC OXIDE PASTE 113 GM TUBE TOP SCH ×2 (09:35→22:48)
[2019-10-08] MEDS: THIAMINE 100 MG TABLET PO SCH ×2 (09:35→22:47)
[2019-10-08] MEDS: OXYBUTYNIN XL 5 MG TABLET PO SCH (09:35)
[2019-10-08] MEDS: SERTRALINE 50 MG TABLET PO SCH (09:35)
[2019-10-08] MEDS: WARFARIN 4 MG TABLET PO SCH (17:44)
[2019-10-08] MEDS: ISOSORBIDE MONONITRATE 30 MG TABLET PO SCH (22:47)
[2019-10-08] MEDS: ATORVASTATIN 80 MG TABLET PO SCH (22:47)
[2019-10-09 07:10] LABS: Basophils # 0.1 10*3/uL (0.0-0.2); Basophils % 0.9 % (0.0-0.8); Eosinophils # 0.3 10*3/uL (0.0-0.87); Eosinophils % 3.9 % (0.00-10.9); Hematocrit 34.3 VOL% (42.0-52.0); Hemoglobin 11.4 GM/DL (14.0-18.0); Immature Granulocytes % 1.4 %; Lymphocytes # 0.9 10*3/uL (1.4-4.0); Lymphocytes % 12.9 % (21.2-54.2); Mean Corpuscular HGB Conc 33.2 GM/DL (32-36); Mean Platelet Volume 9.7 FL (9.6-12.0); Monocytes % 11.3 % (1.7-12.7); Neutrophils % 69.6 % (38.7-73.9); Platelet Count 189 T/CUMM (130-400); Red Blood Count 3.65 MC/CUMM (3.8-5.5); Red Cell Distribution Width 13.3 % (9.3-17.3)
[2019-10-09 07:30] LABS: Calcium 8.9 MG/DL (8.5-10.1); Osmolality,Calculated 288.1 MOS/KG (273-304)
[2019-10-09] MEDS: SODIUM CHLORIDE 0.9% 1,000 ML IV SCH (10:16)
[2019-10-09] MEDS: ENOXAPARIN 80 MG/0.8 ML SYRINGE SUBCUT SCH (10:17)
[2019-10-09] MEDS: MULTIVITAMIN (OCUVITE) TABLET PO SCH ×2 (10:17→21:04)
[2019-10-09] MEDS: INSULIN LISPRO 100 UNIT/ML SUBCUT SCH ×4 (10:17→21:08)
[2019-10-09] MEDS: OXYBUTYNIN XL 5 MG TABLET PO SCH (10:18)
[2019-10-09] MEDS: MULTIVITAMIN (CENTRUM) TABLET PO SCH (10:18)
[2019-10-09] MEDS: TAMSULOSIN 0.4 MG CAPSULE PO SCH (10:18)
[2019-10-09] MEDS: ZINC OXIDE PASTE 113 GM TUBE TOP SCH ×2 (10:18→21:05)
[2019-10-09] MEDS: FOLIC ACID 1 MG TABLET PO SCH ×2 (10:18→21:04)
[2019-10-09] MEDS: ASPIRIN EC 81 MG TABLET PO SCH (10:18)
[2019-10-09] MEDS: DOCUSATE SODIUM 100 MG CAPSULE PO SCH ×2 (10:18→21:08)
[2019-10-09] MEDS: INSULIN GLARGINE 100 UNIT/ML SUBCUT SCH (10:19)
[2019-10-09] MEDS: DIGOXIN 0.125 MG TABLET PO SCH (10:19)
[2019-10-09] MEDS: atenoloL 25 MG TABLET PO SCH ×2 (10:20→21:04)
[2019-10-09] MEDS: OMEGA 3 ACID ETHYL ESTERS 1 GM CAPSULE PO SCH (10:20)
[2019-10-09] MEDS: THIAMINE 100 MG TABLET PO SCH ×2 (10:20→21:04)
[2019-10-09] MEDS: PANTOPRAZOLE 40 MG TABLET PO SCH ×2 (10:20→21:04)
[2019-10-09] MEDS: FUROSEMIDE 40 MG TABLET PO SCH (10:20)
[2019-10-09] MEDS: POLYETHYLENE GLYCOL POWDER 17 GM PACK PO SCH (10:20)
[2019-10-09] MEDS: CYANOCOBALAMIN 500 MCG TABLET PO SCH (10:20)
[2019-10-09] MEDS: ASCORBIC ACID 500 MG TABLET PO SCH ×2 (10:21→21:04)
[2019-10-09] MEDS: EZETIMIBE 10 MG TABLET PO SCH (10:21)
[2019-10-09] MEDS: metOLazone 5 MG TABLET PO SCH (10:21)
[2019-10-09] MEDS: SERTRALINE 50 MG TABLET PO SCH (10:21)
[2019-10-09] MEDS: WARFARIN 4 MG TABLET PO SCH (17:11)
[2019-10-09] MEDS: ISOSORBIDE MONONITRATE 30 MG TABLET PO SCH (21:04)
[2019-10-09] MEDS: ATORVASTATIN 80 MG TABLET PO SCH (21:04)
[2019-10-10 05:51] LABS: Basophils % 0.5 % (0.0-0.8); Eosinophils # 0.4 10*3/uL (0.0-0.87); Hematocrit 34.7 VOL% (42.0-52.0); Hemoglobin 11.3 GM/DL (14.0-18.0); Immature Granulocytes % 1.1 %; Immature Granulocytes Absolute 0.08 #; Lymphocytes % 12.6 % (21.2-54.2); Mean Corpuscular HGB Conc 32.6 GM/DL (32-36); Mean Corpuscular Volume 94.6 FL (87-102); Mean Platelet Volume 10.2 FL (9.6-12.0); Monocytes % 11.2 % (1.7-12.7); Neutrophils % 69.6 % (38.7-73.9); Platelet Count 211 T/CUMM (130-400); Red Blood Count 3.67 MC/CUMM (3.8-5.5); Red Cell Distribution Width 13.4 % (9.3-17.3); White Blood Count 7.6 T/CUMM (4-12)
[2019-10-10 06:22] LABS: Calcium 8.8 MG/DL (8.5-10.1)
[2019-10-10] MEDS ORDERED: POTASSIUM CHLORIDE 20 MEQ TABLET PO ONE (08:28)
[2019-10-10] MEDS: INSULIN LISPRO 100 UNIT/ML SUBCUT SCH ×4 (08:40→21:16)
[2019-10-10] MEDS ORDERED: TUBERCULIN SKIN TEST 0.1 ML SYRINGE INTRADERM ONE (09:32)
[2019-10-10] MEDS: POLYETHYLENE GLYCOL POWDER 17 GM PACK PO SCH (09:36)
[2019-10-10] MEDS: ASPIRIN EC 81 MG TABLET PO SCH (09:37)
[2019-10-10] MEDS: INSULIN GLARGINE 100 UNIT/ML SUBCUT SCH (09:37)
[2019-10-10] MEDS: DOCUSATE SODIUM 100 MG CAPSULE PO SCH ×2 (09:37→20:57)
[2019-10-10] MEDS: PANTOPRAZOLE 40 MG TABLET PO SCH ×2 (09:38→20:57)
[2019-10-10] MEDS: atenoloL 25 MG TABLET PO SCH ×2 (09:38→20:57)
[2019-10-10] MEDS: TAMSULOSIN 0.4 MG CAPSULE PO SCH (09:38)
[2019-10-10] MEDS: DIGOXIN 0.125 MG TABLET PO SCH (09:38)
[2019-10-10] MEDS: FOLIC ACID 1 MG TABLET PO SCH ×2 (09:38→20:57)
[2019-10-10] MEDS: OMEGA 3 ACID ETHYL ESTERS 1 GM CAPSULE PO SCH (09:39)
[2019-10-10] MEDS: MULTIVITAMIN (CENTRUM) TABLET PO SCH (09:39)
[2019-10-10] MEDS: OXYBUTYNIN XL 5 MG TABLET PO SCH (09:39)
[2019-10-10] MEDS: CYANOCOBALAMIN 500 MCG TABLET PO SCH (09:39)
[2019-10-10] MEDS: FUROSEMIDE 40 MG TABLET PO SCH (09:39)
[2019-10-10] MEDS: THIAMINE 100 MG TABLET PO SCH ×2 (09:40→20:56)
[2019-10-10] MEDS: ASCORBIC ACID 500 MG TABLET PO SCH ×2 (09:40→20:56)
[2019-10-10] MEDS: EZETIMIBE 10 MG TABLET PO SCH (09:40)
[2019-10-10] MEDS: MULTIVITAMIN (OCUVITE) TABLET PO SCH ×2 (09:40→20:56)
[2019-10-10] MEDS: SERTRALINE 50 MG TABLET PO SCH (09:40)
[2019-10-10] MEDS: ENOXAPARIN 80 MG/0.8 ML SYRINGE SUBCUT SCH (09:41)
[2019-10-10] MEDS: metOLazone 5 MG TABLET PO SCH (09:41)
[2019-10-10] MEDS: ZINC OXIDE PASTE 113 GM TUBE TOP SCH ×2 (09:43→21:23)
[2019-10-10] MEDS: SODIUM CHLORIDE 0.9% 1,000 ML IV SCH ×3 (12:44→20:56)
[2019-10-10] MEDS: WARFARIN 4 MG TABLET PO SCH (18:36)
[2019-10-10] MEDS: ISOSORBIDE MONONITRATE 30 MG TABLET PO SCH (20:57)
[2019-10-10] MEDS: ATORVASTATIN 80 MG TABLET PO SCH (20:57)
[2019-10-11] MEDS: SODIUM CHLORIDE 0.9% 1,000 ML IV SCH ×3 (01:34→21:30)
[2019-10-11 05:16] LABS: Albumin 2.7 G/DL (3.4-5.0); Bilirubin,Total 0.7 MG/DL (0.2-1.0); Calcium 8.7 MG/DL (8.5-10.1); Osmolality,Calculated 296.8 MOS/KG (273-304); Total Protein 7.5 G/DL (6.4-8.3)
[2019-10-11] MEDS: POLYETHYLENE GLYCOL POWDER 17 GM PACK PO SCH (09:45)
[2019-10-11] MEDS: OXYBUTYNIN XL 5 MG TABLET PO SCH (09:46)
[2019-10-11] MEDS: metOLazone 5 MG TABLET PO SCH (09:46)
[2019-10-11] MEDS: DOCUSATE SODIUM 100 MG CAPSULE PO SCH ×2 (09:47→20:19)
[2019-10-11] MEDS: CYANOCOBALAMIN 500 MCG TABLET PO SCH (09:47)
[2019-10-11] MEDS: DIGOXIN 0.125 MG TABLET PO SCH (09:47)
[2019-10-11] MEDS: MULTIVITAMIN (CENTRUM) TABLET PO SCH (09:47)
[2019-10-11] MEDS: OMEGA 3 ACID ETHYL ESTERS 1 GM CAPSULE PO SCH (09:48)
[2019-10-11] MEDS: PANTOPRAZOLE 40 MG TABLET PO SCH ×2 (09:49→21:41)
[2019-10-11] MEDS: THIAMINE 100 MG TABLET PO SCH ×2 (09:49→21:41)
[2019-10-11] MEDS: TAMSULOSIN 0.4 MG CAPSULE PO SCH (09:49)
[2019-10-11] MEDS: SERTRALINE 50 MG TABLET PO SCH (09:49)
[2019-10-11] MEDS: ASPIRIN EC 81 MG TABLET PO SCH (09:49)
[2019-10-11] MEDS: ASCORBIC ACID 500 MG TABLET PO SCH ×2 (09:50→21:41)
[2019-10-11] MEDS: ZINC OXIDE PASTE 113 GM TUBE TOP SCH ×2 (09:50→21:46)
[2019-10-11] MEDS: MULTIVITAMIN (OCUVITE) TABLET PO SCH ×2 (09:50→21:41)
[2019-10-11] MEDS: FOLIC ACID 1 MG TABLET PO SCH ×2 (09:50→21:41)
[2019-10-11] MEDS: FUROSEMIDE 40 MG TABLET PO SCH (09:51)
[2019-10-11] MEDS: ENOXAPARIN 80 MG/0.8 ML SYRINGE SUBCUT SCH (09:51)
[2019-10-11] MEDS: atenoloL 25 MG TABLET PO SCH ×2 (09:51→21:41)
[2019-10-11] MEDS: INSULIN GLARGINE 100 UNIT/ML SUBCUT SCH (09:52)
[2019-10-11] MEDS: INSULIN LISPRO 100 UNIT/ML SUBCUT SCH ×4 (09:52→21:53)
[2019-10-11] MEDS: EZETIMIBE 10 MG TABLET PO SCH (09:53)
[2019-10-11] MEDS: WARFARIN 4 MG TABLET PO SCH (18:50)
[2019-10-11] MEDS ORDERED: chlorproMAZINE 25 MG TABLET PO ONE (19:46)
[2019-10-11] MEDS: ISOSORBIDE MONONITRATE 30 MG TABLET PO SCH (21:41)
[2019-10-11] MEDS: ATORVASTATIN 80 MG TABLET PO SCH (21:41)
[2019-10-12] MEDS: INSULIN LISPRO 100 UNIT/ML SUBCUT SCH ×2 (08:35→11:57)
[2019-10-12 08:52] VITALS: BP 127/69
[2019-10-12] MEDS: INSULIN GLARGINE 100 UNIT/ML SUBCUT SCH (10:16)
[2019-10-12] MEDS: ENOXAPARIN 80 MG/0.8 ML SYRINGE SUBCUT SCH (10:16)
[2019-10-12] MEDS: OMEGA 3 ACID ETHYL ESTERS 1 GM CAPSULE PO SCH (10:16)
[2019-10-12] MEDS: MULTIVITAMIN (CENTRUM) TABLET PO SCH (10:17)
[2019-10-12] MEDS: TAMSULOSIN 0.4 MG CAPSULE PO SCH (10:17)
[2019-10-12] MEDS: metOLazone 5 MG TABLET PO SCH (10:17)
[2019-10-12] MEDS: MULTIVITAMIN (OCUVITE) TABLET PO SCH (10:17)
[2019-10-12] MEDS: ASPIRIN EC 81 MG TABLET PO SCH (10:17)
[2019-10-12] MEDS: FOLIC ACID 1 MG TABLET PO SCH (10:17)
[2019-10-12] MEDS: EZETIMIBE 10 MG TABLET PO SCH (10:17)
[2019-10-12] MEDS: DIGOXIN 0.125 MG TABLET PO SCH (10:18)
[2019-10-12] MEDS: THIAMINE 100 MG TABLET PO SCH (10:18)
[2019-10-12] MEDS: ASCORBIC ACID 500 MG TABLET PO SCH (10:18)
[2019-10-12] MEDS: SERTRALINE 50 MG TABLET PO SCH (10:18)
[2019-10-12] MEDS: OXYBUTYNIN XL 5 MG TABLET PO SCH (10:18)
[2019-10-12] MEDS: CYANOCOBALAMIN 500 MCG TABLET PO SCH (10:18)
[2019-10-12] MEDS: FUROSEMIDE 40 MG TABLET PO SCH (10:18)
[2019-10-12] MEDS: atenoloL 25 MG TABLET PO SCH (10:19)
[2019-10-12] MEDS: ZINC OXIDE PASTE 113 GM TUBE TOP SCH (10:19)
[2019-10-12] MEDS: PANTOPRAZOLE 40 MG TABLET PO SCH (10:19)
[2019-10-12] MEDS: DOCUSATE SODIUM 100 MG CAPSULE PO SCH (10:19)
[2019-10-12] MEDS: POLYETHYLENE GLYCOL POWDER 17 GM PACK PO SCH (10:19)
== END 2019-10-12 14:42 | DRG 947 ==
LOC: EDBD → EDUNIT# → N.ED 13:54 → N.EDINP 15:49 → N.2E 17:44 → N.TELES 10-05 19:31 → N.ICU 10-06 09:14 → N.TELEN 10-07 11:49
PROVIDERS: ADMIT Family Medicine; ATTEND Family Medicine